=== PATIENT | male | born 1985 | race Caucasian/White ===

== ENCOUNTER 2017-06-13 16:55 | Emergency (ER) | payer SELFPAY ==
[~2017-06-13] VITALS: Ht 172.7 cm; Wt 81.6 kg
[~2017-06-13 16:55] MED LIST: MAXALT10 MG PO; PROMETHAZINE HC25 M1 PO; PROPRANOLOL HCL40 MG PO; PROPRANOLOL HCL60 M1 PO; SUMATRIPTAN SUC25 MG PO
[2017-06-13 18:47] LABS: BASOPHILS % 0.2 % (0.0-1.0); CLARITY,URINE CLEAR (CLEAR); COLOR,URINE YELLOW (YELLOW); EOSINOPHILS % 0.5 % (0.0-6.0); HEMATOCRIT 47.3 % (38.2-49.6); HEMOGLOBIN 15.8 g/dL (14.0-18.0); LYMPHOCYTES # (AUTO) 2.7 (1.0-3.2); LYMPHOCYTES % 32.4 % (18.0-39.1); MEAN CORPUSCULAR HEMOGLOBIN 28.4 pg (28-32); MEAN CORPUSCULAR HGB CONC 33.4 g/dL (31-35); MEAN CORPUSCULAR VOLUME 84.9 fL (81-99); MONOCYTES # (AUTO) 1.1 (0.2-0.8); MONOCYTES % 12.8 % (4.4-11.3); NEUTROPHILS # (AUTO) 4.4 (2.1-6.9); NEUTROPHILS % 53.9 % (38.7-80.0); PLATELET COUNT 276 x10e3/uL (140-360); RED BLOOD COUNT 5.57 x10e6/uL (4.3-5.7); RED CELL DISTRIBUTION WIDTH 13.5 % (11.7-14.4)
[2017-06-13 18:48] LABS: BILIRUBIN,URINE NEGATIVE (NEGATIVE); KETONES,URINE NEGATIVE (NEGATIVE); LEUKOCYTE ESTERASE ,URINE NEGATIVE (NEGATIVE); NITRITE,URINE NEGATIVE (NEGATIVE); PROTEIN,URINE DIPSTICK NEGATIVE (NEGATIVE); URINE UROBILINOGEN 0.2 mg/dL (0.2 - 1)
[2017-06-13 18:55] LABS: AMPHETAMINES SCREEN,URINE NEGATIVE (NEGATIVE); BENZODIAZEPINES SCREEN,URINE NEGATIVE (NEGATIVE); CANNABINOIDS SCREEN,URINE NEGATIVE (NEGATIVE); PHENCYCLIDINE SCREEN,URINE NEGATIVE (NEGATIVE)
[2017-06-13 19:00] LABS: ALANINE AMINOTRANSFERASE 23 IU/L (0-55); ALBUMIN 3.9 g/dL (3.5-5.0); ALKALINE PHOSPHATASE 97 IU/L (40-150); ANION GAP 12.1 mmol/L (8-16); BLOOD UREA NITROGEN 8 mg/dL (7-26); BUN/CREATININE RATIO 9 (6-25); CALCIUM 9.5 mg/dL (8.4-10.2); CARBON DIOXIDE 25 mmol/L (22-29); CHLORIDE 106 mmol/L (98-107); CREATININE, SERUM 0.89 mg/dL (0.72-1.25); EST GLOMERULAR FILTRATION RATE > 60 ML/MIN (60-); GLUCOSE 88 mg/dL (74-118); POTASSIUM 4.1 mmol/L (3.5-5.1); SODIUM 139 mmol/L (136-145)
[2017-06-13 19:10] LABS: VALPROIC ACID < 2 ug/mL (50-100)
--- NOTE | 2017-06-13 19:55 | Diagnostic Imaging Report ---
History: Fall Comparison studies: CT brain from 05/10/2015 and 06/22/2014. Technique: Axial images were obtained from the skull base to the vertex. Coronal and sagittal reconstructions obtained from the axial data. Findings: Scalp/skull: No abnormalities. No fractures, blastic or lytic lesions. Extra-axial spaces: No masses. No fluid collections. Brain sulci: Appropriate for age. Ventricles: Normal in size and configuration. No hydrocephalus. Parenchyma: No abnormal densities. No masses, hemorrhage, acute or chronic cortical vascular insults. Sellar/suprasellar region: No abnormalities Craniocervical junction: Patent foramen magnum. No Chiari one malformation. IMPRESSION: No intracranial abnormalities. A preliminary report was given by Neuroradiology fellow Dr. Akins at 6:11 PM on 06/13/2017. I have reviewed the study and agree with the findings in the preliminary report. Signed by: Dr. Christal Cuevas M.D. on 06/13/2017 7:52 PM
--- NOTE | 2017-06-13 19:59 | Diagnostic Imaging Report ---
History: Fall Comparison studies: None Technique: Axial images were obtained through the cervical region.. Coronal and sagittal images reconstructed from the axial data.. Intravenous contrast: None Findings: Airway: Patent. Fractures: None. Soft tissues: No gross abnormalities. Atlantoaxial articulation: Intact. Alignment: Normal lordosis. No scoliosis. Cervicomedullary junction: No abnormalities. The foramen magnum is patent. Vertebrae: No infection or neoplasm. Degenerative changes: None. IMPRESSION: 1. No acute abnormalities. 2. Ligament, spinal cord and or vascular abnormalities cannot be excluded on the basis of this examination. A preliminary report was given by Neuroradiology fellow Dr. Akins at 6:14 PM on 06/13/2017. I have reviewed the study and agree with the findings in the preliminary report. Signed by: Dr. Christal Cuevas M.D. on 06/13/2017 7:55 PM
== END 2017-06-13 20:01 | disposition left against medical advice (07) ==
LOC: ER 16:55
DX: G40.409 Other generalized epilepsy and epileptic syndromes, not intractable, without status epilepticus (principal)
CPT/HCPCS: 36415; 70450; 72125; 80053; 80164; 80307; 81001; 82542; 85025; 87086; 99284

== ENCOUNTER 2018-12-27 17:12 | Emergency (ER) | payer SELFPAY ==
[~2018-12-27] VITALS: Ht 175.3 cm; Wt 80.9 kg
--- OUTSIDE RECORDS SUMMARY | 2018-12-27 17:15 | XMS REPORT | Clinical Summary ---
Author Author [facility] Organization [facility] Address Unknown Phone Unavailable Care Team Providers Care Line Clearance Foreman Name Role Phone Asked, No Pcp PCP Unavailable Allergies Comments Active Allergy Reactions Severity Noted Date Throat swelling Dicyclomine Swelling 11/28/2016 Ketorolac 11/28/2016 Medications End Date Status Medication Sig Dispensed Refills Start Date Active gabapentin (NEURONTIN) Take 300 mg 0 300 mg capsule by mouth 2 (two) times a day. Active famotidine (PEPCID) 20 MG Take 20 mg by 0 tablet mouth 2 (two) times a day. Active Problems Problem Noted Date Seizure 11/29/2016 Convulsions 11/28/2016 Social History Date Tobacco Use Types Packs/Day Years Used Smoker, Current Status Unknown Alcohol Use Drinks/Week oz/Week Comments No Sex Assigned at Date Recorded Not on file Industry Job Start Date Occupation Not on file Not on file Not on file Travel End Travel History Travel Start No recent travel history available. Last Filed Vital Signs Not on file Plan of Treatment Health Maintenance Due Date Last Done Comments INFLUENZA VACCINE 01/22/2019 Results Not on fileafter 12/26/2017 Advance Directives Patient has advance care planning documents on file. For more information, jose johnson contact: Julio Brown [address] [place] [address]
--- OUTSIDE RECORDS SUMMARY | 2018-12-27 17:16 | XMS REPORT | Continuity of Care Document ---
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 3 cm AV Area Cont Eq pk2.7 cm Mitral E Point Velocity 62 cm/s Mitral A Point Velocity 54 cm/s Mitral E to A Ratio 1.1 MV Deceleration Bowman 285 cm/s MV Deceleration Fvgi644 ms PV Peak Ruavijhb16.5 cm/s PV Peak Gradient3.5 mmHg RVOT Peak Ejgalzxg09.4 cm/s RVOT Peak Gradient1.9 mmHg LV E' Lateral Velocity9.2 cm/s Mitral E to LV E' Lateral Ratio 6.8 LV E' Septal Velocity 7 cm/s Mitral E to LV E' Septal Ratio8.8 FINDINGS Left Ventricle The left ventricle is normal in size. Upper-normal LV wall thickness. LV systolic function is low normal. LVEF is 50-54%. There are no regional wall motion abnormalities.There is normal LV relaxation with normal filling pressures. Right Ventricle The right ventricle is normal in size and systolic function. TAPSE=1.8 cm. Right Atrium The right atrium is normal in size. Left Atrium The left atrium is normal in size. IAS Mitral Valve Structurally normal mitral valve without significant stenosis or prolapse. There is no mitral regurgitation. Aortic Valve The aortic valve is trileaflet and structurally normal. There is no aortic stenosis. There is no aortic regurgitation. Tricuspid Valve Structurally normal tricuspid valve without significant stenosis. There is trace tricuspid regurgitation.Insufficient TR jet to estimate pulmonary artery systolic pressure. Pulmonic Valve Structurally normal pulmonic valve without significant stenosis. There is trace pulmonic regurgitation. Pericardium No pericardial effusion. Aorta Normal aortic root for body surface area. IVC The inferior vena cava is normal in size. CONCLUSIONS The left ventricle is normal in size. Upper-normal LV wall thickness. LV systolic function is low normal. LVEF is 50-54%. There are no regional wall motion abnormalities. There is normal LV relaxation with normal filling pressures. The right ventricle is normal in size and systolic function. Atria are normal size. No significant valvular abnormalities. Insufficient TR jet to estimate pulmonary artery systolic pressure. No pericardial effusion. When compared to prior study from 10/06/2015, the LVEF is improved, no regional wall motion abnormalities are identified Max Park MD (Electronically Signed) Final Date:11 February 2018 17:11 2D ECHO Body Surface Area 2 m LV Diastolic Diameter PLAX4.7 cm4.2 - 5.9 / 3.9 - 5.3 cm LV Systolic Diameter PLAX 3.2 cm2.1 - 4.0 cm LV Fractional Shortening PLAX 32.1 %25 - 46% IVS Diastolic Thickness 1.1 cm IVS Systolic Thickness1.5 cm LVPW Diastolic Thickness1.1 cm LVPW Systolic Thickness 1.4 cm LV Relative Wall Thickness0.46 LVOT Diameter 2.1 cm Aortic Root Diameter3.4 cm LV Diastolic Volume MOD BP93.7 cm67 - 155 / 56 - 104 cm LV Systolic Volume MOD BP 43.7 cm22 - 58 / 19 - 49 cm LV Ejection Fraction MOD BP 53.4 %>=55% LV Stroke Volume MOD BP 50 cm LV Cardiac Output MOD UN6462 cm/min LV Cardiac Index MOD BP 2662 cm/minm LA Volume 44.7 cm18 - 58 / 22 - 52 cm LA Volume Index 22.9 cm/m 16 - 28 cm/m DOPPLER AV Peak Mbjxpdfm210 cm/s AV Peak Gradient4.7 mmHg AV Mean Hvgcejoy33 cm/s AV Mean Gradient2.3 mmHg AV Velocity Time Integral 17.8 cm LVOT Peak Fwhqhwem83 cm/s LVOT Peak Gradient2.8 mmHg LVOT Mean Yucvkaty90.9 cm/s LVOT Mean Gradient1.6 mmHg LVOT Velocity Time Integral 14.7 cm LVOT Stroke Hnxgnr07.5 cm AV Area Cont Eq vti 3 cm AV Area Cont Eq pk2.7 cm Mitral E Point Velocity 62 cm/s Mitral A Point Velocity 54 cm/s Mitral E to A Ratio 1.1 MV Deceleration Bowman 285 cm/s MV Deceleration Kgws607 ms PV Peak Zcbhqvvt64.5 cm/s PV Peak Gradient3.5 mmHg RVOT Peak Fsuzepiy17.4 cm/s RVOT Peak Gradient1.9 mmHg LV E' Lateral Velocity9.2 cm/s Mitral E to LV E' Lateral Ratio 6.8 LV E' Septal Velocity 7 cm/s Mitral E to LV E' Septal Ratio8.8 02/11/2018 [facility] TSH TSH 0.41 0.57 - 3.74 12/31/2017 [facility] TSH Lab Interpretation Abnormal 12/31/2017 [facility] HEMOGLOBIN A1C Hemoglobin A1c 5.5 4.3 - 6.1 12/31/2017 [facility] HEMOGLOBIN A1C Est Average Gluc 111.2 12/31/2017 [facility] BASIC METABOLIC PANEL CO2 26 21 - 31 12/31/2017 [facility] BASIC METABOLIC PANEL Chloride 103 98 - 107 12/31/2017 [facility] BASIC METABOLIC PANEL Potassium 4.8 3.5 - 5.1 12/31/2017 [facility] BASIC METABOLIC PANEL Sodium 137 136 - 145 12/31/2017 [facility] BASIC METABOLIC PANEL Glucose 110 70 - 110 12/31/2017 [facility] BASIC METABOLIC PANEL Urea Nitrogen 11 7 - 25 12/31/2017 [facility] BASIC METABOLIC PANEL Creatinine 0.90 0.7 - 1.3 12/31/2017 [facility] BASIC METABOLIC PANEL Anion Gap 8 12/31/2017 [facility] BASIC METABOLIC PANEL Calcium 10.3 8.6 - 10.3 12/31/2017 [facility] BASIC METABOLIC PANEL GFR, Estimated >60 mL/min/1.73 m2 12/31/2017 [facility] BASIC METABOLIC PANEL GFR, Estim, Afr-Am >60 mL/min/1.73 m2 12/31/2017 [facility] LIPID PROFILE <td ID="[id number]">Cholesterol</td><td><span>184</span>
<span style="allIndent"><span style="cellHeader">Comment: </span>
<span ID="[id number]" style="pre">REFERENCE RANGE:
Desirable: <200 mg/dL
Borderline: 200-240 mg/dL
High Risk: >240 mg/dL

</span></span></td><td>mg/dL</td><td>BT MAIN-STATION 1</td><td ID=&amp ;quot;[id number]"/> 184 12/31/2017 REFERENCE RANGE:
Desirable: <200 mg/dL
Borderline: 200-240 mg/dL
High Risk: >240 mg/dL

[facility] LIPID PROFILE <td ID="[id number]">Triglyceride</td><td><span>70</span>
<span style="allIndent"><span style="cellHeader">Comment: </span>
<span ID="[id number]" style="pre">REFERENCE RANGE:
Normal: <150 mg/dL
Borderline High: 150-199 mg/dL
High: 200-499 mg/dL
Very High: >yw=752 mg/dL

</span></span></td><td><150 mg/dL</td><td>BT MAIN- STATION 1</td><td ID="[id number]"/> 70 <150 12/31/2017 REFERENCE RANGE:
Normal: <150 mg/dL
Borderline High: 150-199 mg/dL
High: 200-499 mg/dL
Very High: >hy=124 mg/dL

[facility] LIPID PROFILE <td ID="[id number]">HDL</td><td><span>51</span>
<span style="allIndent"><span style="cellHeader">Comment: </span>
<span ID="[id number]" style="pre">Increased CHD risk: <40 mg/dL
Decreased CHD risk: >60 mg/dL

</span></span>&am p;lt;/td><td>mg/dL</td><td>BT MAIN-STATION 1</td><td ID="[id number]"/> 51 12/31/2017 Increased CHD risk: <40 mg/dL
Decreased CHD risk: >60 mg/dL

[facility] LIPID PROFILE <td ID="[id number]">LDL</td><td><span>119</span>
<span style="allIndent"><span style="cellHeader">Comment: </span>
<span ID="[id number]" style="pre">REFERENCE RANGE:
Optimal: <100 mg/dL
Near Optimal: 100-129 mg/dL
Borderline High: 130-159 mg/dL
High: 160-189 mg/dL
Very High: >br=605 mg/dL

</span></span></td><td>mg/dL</td><td>BT MAIN-STATION 1</td><td ID="[id number]"/> 119 12/31/2017 REFERENCE RANGE:
Optimal: <100 mg/dL
Near Optimal: 100-129 mg/dL
Borderline High: 130-159 mg/dL
High: 160-189 mg/dL
Very High: >mw=551 mg/dL

[facility] LIVER PROFILE T Protein 7.2 6 - 8.3 12/31/2017 [facility] LIVER PROFILE Albumin 4.4 4.2 - 5.5 12/31/2017 [facility] LIVER PROFILE T Bilirubin 0.4 0.2 - 1.2 12/31/2017 [facility] LIVER PROFILE Alk Phos 69 34 - 104 12/31/2017 [facility] LIVER PROFILE AST 17 13 - 39 12/31/2017 [facility] LIVER PROFILE ALT 22 7 - 52 12/31/2017 [facility] LIVER PROFILE D Bilirubin 0.1 0 - 0.2 12/31/2017 [facility] CBC/DIFF WBC 12.1 4.5 - 12 12/31/2017 [facility] CBC/DIFF RBC 5.85 4.60 - 6.20 12/31/2017 [facility] CBC/DIFF Hemoglobin 17.5 14 - 18 12/31/2017 [facility] CBC/DIFF Hematocrit 52.5 40 - 54 12/31/2017 [facility] CBC/DIFF MCV 90 82 - 92 12/31/2017 [facility] CBC/DIFF MCH 29.9 27 - 31 12/31/2017 [facility] CBC/DIFF MCHC 33.3 32 - 36 12/31/2017 [facility] CBC/DIFF RDW 44.4 35.1 - 43.9 12/31/2017 [facility] CBC/DIFF Platelet 386 150 - 400 12/31/2017 [facility] CBC/DIFF Mean Platelet Volume 10.0 9.4 - 12.4 12/31/2017 [facility] CBC/DIFF Percent NRBC 0.0 12/31/2017 [facility] CBC/DIFF Absolute NRBC 0.00 12/31/2017 [facility] CBC/DIFF Neutrophil 75.5 34 - 67.9 12/31/2017 [facility] CBC/DIFF Lymphocyte 16.1 21.8 - 50 12/31/2017 [facility] CBC/DIFF Monocyte 6.3 5.3 - 12 12/31/2017 [facility] CBC/DIFF Eosinophil 1.2 0.8 - 5 12/31/2017 [facility] CBC/DIFF Basophil 0.5 0.2 - 1.2 12/31/2017 [facility] CBC/DIFF Pct Immat Gran 0.4 0.0 - 0.5 12/31/2017 [facility] CBC/DIFF Neutrophil, Abs 9.14 1.78 - 5.36 12/31/2017 [facility] CBC/DIFF Lymphocyte, Abs 1.95 1.32 - 3.57 12/31/2017 [facility] CBC/DIFF Monocyte, Abs 0.76 0.3 - 0.82 12/31/2017 [facility] CBC/DIFF Eosinophil, Abs 0.15 0.04 - 0.54 12/31/2017 [facility] CBC/DIFF Basophil, Abs 0.06 0.01 - 0.08 12/31/2017 [facility] CBC/DIFF Absol Immat Gran 0.05 0 - 0.03 12/31/2017 [facility] CBC/DIFF Lab Interpretation Abnormal 12/31/2017 [facility] 12 LEAD EKG 12 LEAD EKG FOR [facility] Test Date:2017-12-23 Pat Name: GRABIEL HWANG Department: : 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 Measurements IntervalsAxis Rate: 92 P:65 RI: 128QRS:78 QRSD: 74 T:49 QT: 334 QTc:413 Interpretive Statements Normal sinus rhythm Normal ECG Electronically Signed On 12-23-17 17:05:02 CDT by Isabel Altamirano M.D. 12/23/2017 [facility] Pathology Reports No Data Provided for This Section Diagnostic Reports Report Value Date Source XRAY CHEST 2 VIEWS IMPRESSION: 1.Age-indeterminate wedge- shaped compression deformities of the T7 andT8 vertebral bodies, new since 07/27/2015.2.Lungs are clear. Dictated By: Daren Duenas DO, 08/11/2018 1:23 PM I have reviewed the study and agree with the findings in this report. Signed By: Yesenia Álvarez MD, 08/11/2018 1:56 PM EXAM: XRAY CHEST 2 VIEWS DATE: 08/11/2018 10:06 AM INDICATION: Sob on exertion, h/o CHF COMPARISON: Chest x-ray 07/27/2015 FINDINGS: Devices, Lines, and Tubes: None. Heart and Mediastinum: No abnormalities. Lungs and Pleura: Clear. Bones and Soft Tissues: Age- indeterminate wedge-shaped compressiondeformities of the T7 and T8 vertebral bodies with with 40% height loss,and increased thoracic kyphosis. Cortical anchor screws in the righthumeral head. Interface, Rad/Mammog In - 08/11/2018 2:01 PM CSTEXAM: XRAY CHEST 2 VIEWS DATE: 08/11/2018 10:06 AM INDICATION: Sob on exertion, h/o CHF COMPARISON: Chest x-ray 07/27/2015 FINDINGS: Devices, Lines, and Tubes: None. Heart and Mediastinum: No abnormalities. Lungs and Pleura: Clear. Bones and Soft Tissues: Age-indeterminate wedge-shaped compression deformities of the T7 and T8 vertebral bodies with with 40% height loss, and increased thoracic kyphosis. Cortical anchor screws in the right humeral head. IMPRESSION IMPRESSION: 1. Age-indeterminate wedge-shaped compression deformities of the T7 and T8 vertebral bodies, new since 07/27/2015. 2. Lungs are clear. Dictated By: Daren Duenas DO, 08/11/2018 1:23 PM I have reviewed the study and agree with the findings in this report. Signed By: Yesenia Álvarez MD, 08/11/2018 1:56 PM 08/11/2018 [facility] Consultation Notes No Data Provided for This Section Discharge Summaries No Data Provided for This Section History and Physicals No Data Provided for This Section Vital Signs Vital Sign Value Date Comments Source Systolic (mm Hg) 117 10/16/2018 [facility] Diastolic (mm Hg) 76 10/16/2018 [facility] Heart Rate 109 10/16/2018 [facility] Temperature Oral (F) 36.83 [place] 10/16/2018 [facility] Respitory Rate 18 10/16/2018 [facility] Height 175.3 cm 10/16/2018 [facility] Weight 81.92 10/16/2018 [facility] Systolic (mm Hg) 108 04/01/2018 [facility] Diastolic (mm Hg) 71 04/01/2018 [facility] Heart Rate 85 04/01/2018 [facility] Temperature Oral (F) 36.61 [place] 04/01/2018 [facility] Respitory Rate 18 04/01/2018 [facility] Height 175.3 cm 04/01/2018 [facility] Weight 82.01 04/01/2018 [facility] BMI Calculated 26.70 04/01/2018 [facility] Systolic (mm Hg) 124 12/23/2017 [facility] Diastolic (mm Hg) 81 12/23/2017 [facility] Heart Rate 121 12/23/2017 [facility] Temperature Oral (F) 36.89 [place] 12/23/2017 [facility] Respitory Rate 18 12/23/2017 [facility] Height 175.3 cm 12/23/2017 [facility] Weight 77.928 12/23/2017 [facility] BMI Calculated 25.37 12/23/2017 [facility] Encounters Location Location Details Encounter Type Encounter Number Reason For Visit Attending Provider ADM Date DC Date Status Source [facility] [place] Refill [id number] RLQ abdominal pain Right upper quadrant abdominal pain Ting Rascon MD 09/03/2017 [facility] [place] Refill [id number] Heart palpitations Chronic intractable headache, unspecified headache type Combined systolic and diastolic congestive heart failure, unspecified congestive heart failure chronicity Sinus tachycardia Right upper quadrant abdominal pain RLQ abdominal pain Ting Rascon MD 09/03/2017 [facility] [place] [facility] Visit [id number] 09/03/2017 [facility] [place] [facility] Visit [id number] 09/04/2017 [facility] [place] [facility] Visit [id number] 09/05/2017 [facility] [place] Office Visit [id number] [facility] Acute non-recurrent maxillary sinusitis Cough Combined systolic and diastolic congestive heart failure, unspecified congestive heart failure chronicity Sinus tachycardia Seizures Gastroesophageal reflux disease without esophagitis Pain in thoracic spine at multiple sites Ting Rascon MD 09/05/2017 09/05/2017 [facility] [place] [facility] Visit [id number] 09/06/2017 [facility] [place] Orders Only [id number] Seizure Georgina Freed [employer] 09/11/2017 [facility] [place] [facility] Visit [id number] 09/12/2017 [facility] Visit [id number] 09/12/2017 [facility] [place] [facility] Visit [id number] 09/26/2017 [facility] [place] Refill [id number] Acute non-recurrent maxillary sinusitis Cough Scott Hernadez MD 09/26/2017 [facility] Visit [id number] 09/26/2017 [facility] [place] [facility] Visit [id number] 09/27/2017 [facility] Visit [id number] 09/27/2017 [facility] [place] [facility] Visit [id number] 09/30/2017 [facility] Visit [id number] 09/30/2017 [facility] [place] [facility] Visit [id number] 10/01/2017 [facility] Visit [id number] 10/01/2017 [facility] [place] [facility] Visit [id number] 10/02/2017 [facility] [place] [facility] Visit [id number] 10/03/2017 [facility] [place] Refill [id number] Pain in thoracic spine at multiple sites Scott Hernadez MD 10/26/2017 [facility]acy Visit [id number] 10/28/2017 [facility] [place] Refill [id number] Pain in thoracic spine at multiple sites Scott Hernadez MD 10/29/2017 [facility] [place] [facility] Visit [id number] 11/04/2017 [facility] [place] [facility] Visit [id number] 11/07/2017 [facility] [place] [facility] Visit [id number] 12/03/2017 [facility] [place] [facility] Visit [id number] 12/04/2017 [facility] Visit [id number] 12/04/2017 [facility] [place] [facility] Visit [id number] 12/05/2017 [facility] [place] [facility] Visit [id number] 12/23/2017 [facility] [place] Office Visit [id number] Ting Rascon MD 12/23/2017 12/23/2017 [facility] [place] Lab Appointment [id number] Ting Rascon MD 12/30/2017 12/30/2017 [facility] [place] [facility] Visit [id number] 01/02/2018 [facility] [place] Refill [id number] Scott Hernadez MD 02/01/2018 [facility] [place] [facility] Visit [id number] 02/03/2018 [facility] Visit [id number] 02/03/2018 [facility] [place] [facility] Visit [id number] 02/04/2018 [facility] Encounter [id number] Ting Rascon MD 02/11/2018 02/12/2018 [facility] [place] Refill [id number] Rosa Jha RN 02/12/2018 [facility] [place] [facility] Visit [id number] 02/17/2018 [facility] [place] [facility] Visit [id number] 02/19/2018 [facility] [place] [facility] Visit [id number] 03/04/2018 [facility] Visit [id number] 03/25/2018 [facility] [place] [facility] Visit [id number] 03/25/2018 [facility] [place] [facility] Visit [id number] 03/27/2018 [facility] [place] [facility] Visit [id number] 04/01/2018 [facility] [place] Office Visit [id number] Ting Rascon MD 04/01/2018 04/01/2018 [facility] [place] [facility] Visit [id number] 04/02/2018 [facility] [place] [facility] Visit [id number] 05/02/2018 [facility] [place] Refill [id number] Rosa Jha RN 05/26/2018 [facility] [place] Refill [id number] Ting Rascon MD 06/21/2018 [facility] Travel [id number] 08/04/2018 [facility] Office Visit [id number] Ting Rascon MD 08/04/2018 08/04/2018 [facility] [place] Orders Only [id number] Ting Rascon MD 08/07/2018 [facility] [place] Office Visit [id number] Ting Rascon MD 08/07/2018 08/07/2018 [facility] [place] Lab Appointment [id number] Ting Rascon MD 08/11/2018 08/11/2018 [facility] [place] Ancillary Procedure [id number] Ting Rascon MD 08/11/2018 08/11/2018 [facility] [place] Refill [id number] Ting Rascon MD 09/14/2018 [facility] [place] Refill [id number] Scott Hernadez MD 09/14/2018 [facility] [place] Refill [id number] Ting Rascon MD 09/30/2018 [facility] [place] Telephone [id number] Bradford Tan 10/02/2018 [facility] Travel [id number] 10/14/2018 [facility] [place] Orders Only [id number] Ting Rascon MD 10/16/2018 [facility] [place] Office Visit [id number] Ting Rascon MD 10/16/2018 10/16/2018 [facility] [place] Refill [id number] Ting Rascon MD 11/12/2018 [facility] EKG (5400) [facility] Encounter [id number] Ting Rascon MD 11/14/2018 [facility] Procedures Procedure Code Date Perfomer Comments Source XRAY CHEST 2 VIEWS 34828 08/11/2018 [facility] VALPROIC ACID 04615 08/11/2018 [facility] LIVER PROFILE 62914 08/11/2018 [facility] BASIC METABOLIC PANEL 40890 08/11/2018 [facility] CBC/DIFF 10647 08/11/2018 [facility] HEMOGLOBIN A1C 27525 08/11/2018 [facility] FREE T4 62778 08/11/2018 [facility] THYROID STIMULATING HORMONE (TSH) 60434 08/11/2018 [facility] PULMONARY FUNCTION TEST 36670 08/08/2018 [facility] TRANSTHORACIC ECHO (TTE) 76005 02/11/2018 [facility] TRANSTHORACIC ECHO (TTE) 75146 02/11/2018 [facility] LIPID PROFILE 20679 12/30/2017 [facility] LIVER PROFILE 05940 12/30/2017 [facility] BASIC METABOLIC PANEL 44843 12/30/2017 [facility] CBC/DIFF 71819 12/30/2017 [facility] HEMOGLOBIN A1C 09184 12/30/2017 [facility] THYROID STIMULATING HORMONE (TSH) 47965 12/30/2017 [facility] LIPID PROFILE 19497 12/30/2017 [facility] LIVER PROFILE 04302 12/30/2017 [facility] BASIC METABOLIC PANEL 48555 12/30/2017 [facility] CBC/DIFF 61634 12/30/2017 [facility] HEMOGLOBIN A1C 54602 12/30/2017 [facility] TSH 81038 12/30/2017 [facility] 12 LEAD EKG 71573 12/23/2017 [facility] 12 LEAD EKG 00777 12/23/2017 [facility] Assessment and Plan No Data Provided for This Section Plan of Care Plan of Care Date Source Not on file 12/02/2018 [facility] Upcoming EncountersDateTypeSpecialtyCare TeamDescription 07/03/2018 Office Visit Neurology ref #: [id number] 05/19/2018 [facility] Upcoming EncountersDateTypeSpecialtyCare TeamDescription 04/01/2018 Office Visit Family Practice Ting Rascon [id number] [phone] (Fax) [facility] Social History Social History Date Source Tobacco UseTypesPacks/DayYears UsedDate Light Tobacco Smoker Cigarettes 0.5 10 Smokeless Tobacco: Never Used Tobacco Cessation: Ready to Quit: Yes; Counseling Given: Yes Comments: trying to quit Alcohol UseDrinks/Weekoz/WeekComments No 0 Standard drinks or equivalent 0.0 none ETOH for four years (07/2015) Food InsecurityAnswerDate Recorded Within the past 12 months, you worried that your food would run out before you got money to buy more. Sometimes true 10/16/2018 Within the past 12 months, the food you bought just didn't last and you didn't have money to get more. 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 11/26/2018 [facility] Family History Value Date Source Medical HistoryRelationNameComments Hypertension Mother Other Mother migraine, depression RelationNameStatusComments Brother Alive Father Alive Maternal Grandfather Maternal Grandmother Mother Alive Paternal Grandfather Paternal Grandmother Alive Sister Alive Sister Alive Sister Alive Son Alive 12/02/2018 [facility] Medical HistoryRelationNameComments Hypertension Mother Other Mother migraine, depression RelationNameStatusComments Brother Alive Father Alive Maternal Grandfather Maternal Grandmother Mother Alive Paternal Grandfather Paternal Grandmother Alive Sister Alive Sister Alive Sister Alive Son Alive 05/19/2018 [facility] Medical HistoryRelationNameComments Hypertension Mother Other Mother migraine, depression RelationNameStatusComments Brother Alive Father Alive Maternal Grandfather Maternal Grandmother Mother Alive Paternal Grandfather Paternal Grandmother Alive Sister Alive Sister Alive Sister Alive Son Alive 03/27/2018 [facility] Advance Directives No Data Provided for This Section Functional Status No Data Provided for This Section
--- OUTSIDE RECORDS SUMMARY | 2018-12-27 17:17 | XMS REPORT | Clinical Summary ---
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 Velocity 7 cm/s Mitral E to LV E' Septal Ratio8.8 Specimen Performing Organization Address [facility] Phone Number [facility] * LIPID PROFILE (12/30/2017 12:58 PM CDT) Cholesterol 184 mg/dL BT MAIN-STATION Comment: 1 REFERENCE RANGE: Desirable: <200 mg/dL Borderline: 200-240 mg/dL High Risk: >240 mg/dL Triglyceride 70 <150 mg/dL BT MAIN-STATION Comment: 1 REFERENCE RANGE: Normal: <150 mg/dL Borderline High: 150-199 mg/dL High: 200-499 mg/dL Very High: >or=671 mg/dL HDL 51 mg/dL BT MAIN-STATION Comment: 1 Increased CHD risk: <40 mg/dL Decreased CHD risk: >60 mg/dL LDL 119 mg/dL BT MAIN-STATION Comment: 1 REFERENCE RANGE: Optimal: <100 mg/dL Near Optimal: 100-129 mg/dL Borderline High: 130-159 mg/dL High: 160-189 mg/dL Very High: >iz=471 mg/dL Specimen Blood Performing Organization Address [facility] Phone Number MISYS BT MAIN-STATION 1 * 12 LEAD EKG (12/23/2017 10:56 AM CDT) 12 LEAD EKG FOR [facility] Test Date:2017-12-23 Pat Name: SAMSON HWANG Department: Room: Gender: M [employer] Director: [id number] :1984-06 Requested By: Order Number: Joshua larios MD: Isabel Altamirano M.D. Measurements Intervals [place] Rate: 92 P:65 CT: 128 QRS: 78 QRSD: 74 T:49 QT: 334 QTc:413 Interpretive Statements Normal sinus rhythm Normal ECG Electronically Signed On 12-23-17 17:05:02 CDT by Isabel Altamirano M.D. Specimen Performing Organization Address City/State/Zipcode Phone Number SMS after 12/01/2017 Insurance Type Payer Benefit Subscriber ID Effective Phone Address Plan / Dates Group [facility] xxxxxxx 2018-4 [address] SELF FAMILY /01/2020 [id number] [place], [place] SELF [phone] [facility] SELF-PAY SELF-PAY xxxxxxx 2018-3 [address] [facility] / [place] [address]
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
--- OUTSIDE RECORDS SUMMARY | 2018-12-27 17:19 | XMS REPORT | Clinical Summary ---
Author Author [facility] Organization [facility] Address Unknown Phone Unavailable Care Team Providers Care Outbound Supervisor Name Role Phone Ting Portillo MD PCP [...] Active tablet times daily as needed. 17 divalproex (DEPAKOTE) 250 Take 1 tablet by mouth 2 60 tablet 3 09/12/19 Active mg delayed release times daily. 18 tabletIndications: Seizure lisinopril (PRINIVIL) 10 Take 1 tablet by mouth 90 tablet 1 12/24/19 Active mg tabletIndications: daily. 18 Sinus tachycardia carvedilol (COREG) 25 mg Take 1 tablet by mouth 2 180 tablet 1 12/24/19 Active tabletIndications: times daily (with meals). 18 Combined systolic and diastolic congestive heart failure, unspecified HF chronicity furosemide (LASIX) 20 mg Take 1 tablet by mouth 90 tablet 1 12/24/19 Active tabletIndications: daily. 18 Combined systolic and diastolic congestive heart failure, unspecified HF chronicity zolpidem (AMBIEN) 5 mg Take 1 tablet by mouth 30 tablet 1 12/24/19 Active TabIndications: Insomnia, nightly at bedtime as 18 unspecified type needed for Insomnia. gabapentin (NEURONTIN) Take 1 capsule by mouth 2 60 capsule 3 02/05/20 Active 300 mg times daily. 18 capsuleIndications: Seizures traMADol (ULTRAM) 50 mg Take 1 tablet by mouth 60 tablet 1 02/18/20 Active tabletIndications: Pain every 12 hours. 18 in thoracic spine at multiple sites sennosides (SENOKOT) 8.6 Take 1 tablet by [...] unspecified congestive heart failure chronicity, Sinus tachycardia traMADol (ULTRAM) 50 mg Take 1 tablet [...] Encounters Date Type Specialty Care Team Description 03/27/2018 Pharmacy Visit 03/25/2018 Pharmacy Visit 03/25/2018 Pharmacy Visit 03/04/2018 Pharmacy Visit 02/19/2018 Pharmacy Visit 02/17/2018 Pharmacy Visit 02/12/2018 Refill Family Practice Rosa Jha RN Pain in thoracic spine at multiple sites 02/11/2018 Hospital Ting Portillo MD Encounter 02/04/2018 Pharmacy Visit 02/03/2018 Pharmacy Visit 02/03/2018 Pharmacy Visit 02/01/2018 Refill Family Practice Scott Hernadez MD Seizures 01/02/2018 Pharmacy Visit 12/30/2017 Lab Appointment Lab Ting Portillo MD Preventative health care 12/23/2017 Office Visit Family Practice Ting Portillo MD [...] Pharmacy Visit 11/04/2017 Pharmacy Visit 10/29/2017 Refill [facility] Scott Hernadez MD Pain in thoracic spine at multiple sites 10/28/2017 Pharmacy Visit 10/26/2017 Refill Family Scott Pringle MD Pain in thoracic spine at multiple sites 10/03/2017 Pharmacy Visit 10/02/2017 Pharmacy Visit 10/01/2017 Pharmacy Visit 10/01/2017 Pharmacy Visit 09/30/2017 Pharmacy Visit 09/30/2017 Pharmacy Visit 09/27/2017 Pharmacy Visit 09/27/2017 Pharmacy Visit 09/26/2017 Pharmacy Visit 09/26/2017 Refill [facility] Scott Pringle MD Acute non-recurrent maxillary sinusitis; Cough 09/26/2017 Pharmacy Visit 09/12/2017 Pharmacy Visit 09/12/2017 Pharmacy Visit 09/11/2017 Orders Only Family Practice Georgina Freed NP Seizure (Primary Dx) 09/06/2017 Pharmacy Visit 09/05/2017 Office Visit Family Ting Noguera MD Preventative health care Georgina Freed NP (Primary Dx); Acute non-recurrent maxillary sinusitis; Cough; Combined systolic and diastolic congestive heart failure, unspecified congestive heart failure chronicity; Sinus tachycardia; Seizures; Gastroesophageal reflux disease without esophagitis; Pain in thoracic spine at multiple sites 09/05/2017 Pharmacy Visit 09/04/2017 Pharmacy Visit 09/03/2017 Refill Family Practice Ting Portillo MD RLQ abdominal pain; Right upper quadrant abdominal pain 09/03/2017 Refill Family Ting Noguera MD Heart palpitations; Chronic intractable headache, unspecified headache type; Combined systolic and diastolic congestive heart failure, unspecified congestive heart failure chronicity; Sinus tachycardia; Right upper quadrant abdominal pain; RLQ abdominal pain 09/03/2017 Pharmacy Visit after 03/26/2017 Immunizations Name Dates Previously Given Next Due Azithromycin 250mg Tab In 08/26/2015 Clinic Influenza Vaccine 04/18/2016 (Deferred: Patient Refused), 08/27/2015 (Deferred: Patient Refused), 08/26/2015 (Deferred: Patient Refused), 05/06/2015 (Deferred: Patient Refused), 08/12/2014 (Deferred: Patient Refused) Tdap Tetanus, diphtheria, 08/26/2012 acellular pertussis Vaccine [...] Vital Sign Reading Time Taken Blood Pressure 124/81 12/23/2017 9:19 AM CDT Pulse 121 12/23/2017 9:19 AM CDT Temperature 36.9 C (98.4 F) 12/23/2017 9:19 AM CDT Respiratory Rate 18 12/23/2017 9:19 AM CDT Oxygen Saturation 96% 12/23/2017 9:19 AM CDT Inhaled Oxygen - - Concentration Weight 77.9 kg (171 lb 12.8 oz) 12/23/2017 9:19 AM CDT Height 175.3 cm (5' 9") 12/23/2017 9:19 AM CDT Body Mass Index 25.37 12/23/2017 9:19 AM CDT Plan of Treatment Date Type Specialty Care Team Description 04/01/2018 Office Visit Family Practice Ting Portillo MD [address] [address] Procedures Procedure Name Priority Date/Time Associated Diagnosis [...] procedure are in the results section. after 03/26/2017 Results * TRANSTHORACIC ECHO (TTE) (02/11/2018 1:34 PM) TRANSTHORACIC ECHO (TTE) Transthoracic SMS Echo Report SAMSON HWANG Age:32 Gender: M :1985 Exam Date: 02/11/2018 13:34 Exam Location: [facility] Echo Ordering Phys: TING PORTILLO Referring Phys:TING PORTILLO Reading Phys:Max Park MD Fellow Phys: Wilfrido Ahumada M.D. Fellow Phys: Patient Service Technician Pst: Nelli Wilson Reason For Exam: Indications: worsening symptoms of SOB, NYHA III, tachycardia ICD-9 Codes: Exam Type: TRANSTHORACIC ECHO (TTE) Procedure CPT:24245 Addtional CPT: Ht (in): 69 BSA: 1.95HR: [...] BP 50 cm LV Cardiac Output MOD [id number] cm/min LV Cardiac Index MOD BP 2662 [...] E to A Ratio 1.1 MV Deceleration [place] 285 cm/s MV Deceleration Time 217 ms [...] BP 50 cm LV Cardiac Output MOD [id number] cm/min LV Cardiac Index MOD BP 2662 [...] E to A Ratio 1.1 MV Deceleration [place] 285 cm/s MV Deceleration Time 217 ms PV Peak Velocity 93.5 cm/s PV Peak Gradient 3.5 mmHg RVOT Peak Velocity 69.4 cm/s RVOT Peak Gradient 1.9 mmHg LV E' Lateral Velocity 9.2 cm/s Mitral E to LV E' Lateral Ratio 6.8 LV E' Septal Velocity 7 cm/s Mitral E to LV E' Septal Ratio8.8 Performing Organization Address [facility] [place] Phone Number SMS * HEMOGLOBIN A1C (12/30/2017 12:58 PM) Hemoglobin A1c 5.5 4.3 - 6.1 % BT DIAGNOSTIC IMMUNOLOGY Est Average Gluc 111.2 mg/dL BT DIAGNOSTIC IMMUNOLOGY Specimen Blood Performing Organization Address [facility] [place] Phone Number MISYS BT DIAGNOSTIC IMMUNOLOGY * TSH (12/30/2017 12:58 PM) TSH 0.41 (L) 0.57 - 3.74 uIU/mL BT MAIN-STATION 1 Specimen Blood Performing Organization Address [facility] [place] Phone Number MISYS BT MAIN-STATION 1 * [...] MAIN-STATION 1 Specimen Blood Performing Organization Address [facility] [place] Phone Number MISYS BT MAIN-STATION 1 * LIPID PROFILE (12/30/2017 12:58 PM) Cholesterol 184 mg/dL BT MAIN-STATION 1 Comment: REFERENCE RANGE: Desirable: <200 mg/dL Borderline: 200-240 mg/dL High Risk: >240 mg/dL Triglyceride 70 <150 mg/dL BT MAIN-STATION 1 Comment: REFERENCE RANGE: Normal: <150 mg/dL Borderline High: 150-199 mg/dL High: 200-499 mg/dL Very High: >ll=228 mg/dL HDL 51 mg/dL BT MAIN-STATION 1 Comment: Increased CHD risk: <40 mg/dL Decreased CHD risk: >60 mg/dL LDL 119 mg/dL BT MAIN-STATION 1 Comment: REFERENCE RANGE: Optimal: <100 mg/dL Near Optimal: 100-129 mg/dL Borderline High: 130-159 mg/dL High: 160-189 mg/dL Very High: >kr=885 mg/dL Specimen Blood Performing Organization Address City/State/Zipcode Phone Number MISYS BT MAIN-STATION 1 * CBC/DIFF (12/30/2017 12:58 PM) WBC [...] MAIN-STATION 2 Specimen Blood Performing Organization Address [facility] [place] Phone Number MISYS BT MAIN-STATION 2 * [...] MAIN-STATION 1 Specimen Blood Performing Organization Address [facility] [place] Phone Number MISYS BT MAIN-STATION 1 * 12 LEAD EKG (12/23/2017 10:56 AM) 12 LEAD EKG FOR [facility] Test Date:2017-12-23 Pat Name: SAMSON HWANG Department: Room: Gender: M Vegetable 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 Measurements Intervals [place] Rate: 92 P:65 GA: 128 QRS: 78 QRSD: 74 T:49 QT: 334 QTc:413 Interpretive Statements Normal sinus rhythm Normal ECG Electronically Signed On 12-23-17 17:05:02 CDT by Isabel Altamirano M.D. Performing Organization Address City/State/Zipcode Phone Number SMS after 03/26/2017
--- OUTSIDE RECORDS SUMMARY | 2018-12-27 17:20 | XMS REPORT ---
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 Allergies, Adverse Reactions, Alerts Allergy Name Allergy Type Status Severity Reaction(s) Onset Date Inactive Date Treating Clinician Comments Penicillins DA Active U 2018-09-07 00:00:00 caffeine DA Active [place] 2018-09-07 00:00:00 dicyclomine DA Active [place] 2018-09-07 00:00:00 ketorolac DA Active [place] 2018-09-07 00:00:00 perflutren DA Active [place] 2018-09-07 00:00:00 Penicillins DA Active U 2018-06-12 00:00:00 caffeine DA Active [place] 2018-06-12 00:00:00 dicyclomine DA Active KS 2018-06-12 00:00:00 ketorolac DA Active KS 2018-06-12 00:00:00 perflutren DA Active KS 2018-06-12 00:00:00 Penicillins DA Active U 2018-05-07 00:00:00 caffeine DA Active [place] 2018-05-07 00:00:00 dicyclomine DA Active [place] 2018-05-07 00:00:00 ketorolac DA Active [place] 2018-05-07 00:00:00 perflutren DA Active [place] 2018-05-07 00:00:00 Penicillins DA Active U 2017-10-19 00:00:00 caffeine DA Active [place] 2017-10-19 00:00:00 dicyclomine DA Active [place] 2017-10-19 00:00:00 ketorolac DA Active [place] 2017-10-19 00:00:00 perflutren DA Active MO 2017-10-19 00:00:00 Medications This patient has no known medications. Encounters Start Date/Time End Date/Time Encounter Type Admission Type Attending [facility] Care Department Encounter ID 2019-01-29 00:00:00 2019-01-29 00:00:00 Outpatient [facility] [id number] 2018-12-02 16:38:00 2018-12-02 16:38:00 Emergency E [facility] [id number] 2018-11-14 00:00:00 2018-11-14 00:00:00 Outpatient [facility] [id number] 2018-10-31 00:00:00 2018-10-31 00:00:00 Outpatient [facility] [id number] 2018-10-29 00:00:00 2018-10-29 00:00:00 Outpatient [facility] [id number] 2018-10-16 14:39:21 2018-10-16 14:39:21 Outpatient [facility] [id number] 2018-10-10 00:00:00 2018-10-10 00:00:00 Outpatient [facility] [id number] 2018-10-09 00:00:00 2018-10-09 00:00:00 Outpatient [facility] [id number] 2018-09-08 00:00:00 2018-09-08 00:00:00 Outpatient [facility] [id number] 2018-09-03 00:00:00 2018-09-03 00:00:00 Outpatient [facility] [id number] 2018-08-27 00:00:00 2018-08-27 00:00:00 Outpatient [facility] [id number] 2018-08-25 00:00:00 2018-08-25 00:00:00 Outpatient [facility] [id number] 2018-08-19 00:00:00 2018-08-19 00:00:00 Outpatient [facility] [id number] 2018-08-11 09:58:34 2018-08-11 09:58:34 Outpatient [facility] [id number] 2018-08-11 09:48:29 2018-08-11 09:48:29 Outpatient [facility] [id number] 2018-08-07 15:51:56 2018-08-07 15:51:56 Outpatient [facility] [id number] 2018-08-04 12:13:05 2018-08-04 12:13:05 Outpatient [facility] [id number] 2018-08-04 00:00:00 2018-08-04 00:00:00 Outpatient [facility] [id number] 2018-07-03 00:00:00 2018-07-03 00:00:00 Outpatient [facility] [id number] 2018-05-26 00:00:00 2018-05-26 00:00:00 Outpatient [facility] [id number] 2018-04-01 15:21:32 2018-04-01 15:21:32 Outpatient [facility] [id number] 2018-04-01 00:00:00 2018-04-01 00:00:00 Outpatient [facility] [id number] 2018-03-19 00:00:00 2018-03-19 00:00:00 Outpatient [facility] [id number] 2018-02-12 00:00:00 2018-02-12 00:00:00 Outpatient [facility] [id number] 2018-02-11 14:07:27 2018-02-11 14:07:27 Outpatient [facility] [id number] 2018-02-01 00:00:00 2018-02-01 00:00:00 Outpatient [facility] [id number] 2017-12-30 13:02:29 2017-12-30 13:02:29 Outpatient [facility] [id number] 2017-12-23 09:19:21 2017-12-23 09:19:21 Outpatient [facility] [id number] Results Test Description Test Time Test Comments Text Results Atomic Results Result Comments - XR HAND 3 + V LT 2018-12-07 17:40:00 Name: GRABIEL HWANG [facility] : 1985 Age/S:33 /M [address] [facility] Unit#:[id number] Loc: [place] [address] Phys: Yeimi Spencer DELIVERY CONSULTANT Dis Date: PHONE #: [phone] Status: DEP ER FAX #: [phone] Exam Date: 12/07/2018 Reason: s/p staple removal EXAMS: CPT CODE: [id number] XR HAND 3 + V LT 04772 EXAM: Right hand, 3 views; INFORMATION: Status post trauma; status post removal of a metallic staple; IMPRESSION: 1. No evidence of residual foreign body after removal of a stable. 2. The oblique view it now demonstrates a 7 x 1 mm cortical bone fragment along the radial aspect of the proximal portion of the third metacarpal bone. This is consistent with localized osseous trauma secondary to the staple injury. at 1740 Reported and signed by: Mckinley Costello M.D. CC: Bret Monte MD Technologist: Bettina Clemons Trnscrpt Data: 12/07/2018 (484) Gus Orig Print D/T: S: 12/08/2018 (7254) PAGE 1 Signed Report - XR HAND 3 + V LT 2018-12-07 17:05:00 Name: GRABIEL HWANG [facility] : 1985 Age/S:33 /M [address] [facility] Unit#:[id number] Loc: [place] [address] Phys: Yeimi Spencer NP Dis Date: PHONE #: [phone] Status: REG FAX #: [phone] Exam Date: 12/07/2018 Reason: staple in palm of left hand EXAMS: CPT CODE: [id number] XR HAND 3 + V LT [address] EXAM: Left hand, 3 views INFORMATION: Trauma; stable in palm of left hand; IMPRESSION: A new shape metallic foreign body is seen within soft tissues of the left hand. It measures about 2 cm in length. Osseous structures are intact; no evidence of fracture or dislocation. at 7174 Reported and signed by: Mckinley Costello M.D. CC: Technologist: Bettina Clemons Trnscrpt Data: 12/07/2018 (3688) Gus Orig Print D/T: S: 12/07/2018 (5083) PAGE 1 Signed Report - XR HAND 3 + V RT 2018-12-01 13:05:00 Name: GRABIEL HWANG [facility] : 1985 Age/S:33 /M [address] [facility] Unit#:[id number] Loc: [place] [address] Phys: Yeimi Spencer NP Dis Date: PHONE #: [phone] Status: REG ER FAX #: [phone] Exam Date: 12/01/2018 Reason: fell from standing yest R index finger pain EXAMS: CPT CODE: [id number] XR HAND 3 + V RT 27551 HISTORY fall and index finger pain. COMPARISON: X-ray from April 11, 2018. 3 views of the right hand: No acute fracture or dislocation. Joint spaces are preserved. No erosive or destructive changes are noted. IMPRESSION: No acute fracture or dislocation. Joint spaces are preserved. at 1309 Reported and signed by: Sameer Nova M.D. CC: Technologist: Hodan Rosado RT(R)(CT) Trnscrpt Data: 12/01/2018 (6983) t.[email or web address].TH4 Orig Print D/T: S: 12/01/2018 (2316) PAGE 1 Signed Report - CT ABD PELVIS W/CONT 2018-11-17 13:03:00 Name: GRABIEL HWANG [facility] : 1985 Age/S: 33 / M [address] [facility] Unit #: [id number] Loc: [place] [address] Phys: Wally Temple MD Acct: [id number] Dis Date: Status: REG ER PHONE #: [phone] Exam Date: 11/17/2018 1245 FAX #: [phone] Reason: LUQ pain post fall EXAMS: CPT CODE: [id number] CT ABD PELVIS W/CONT 56090 HISTORY: LUQ pain post fall TECHNIQUE: Immediate and delayed [address] images were obtained through the abdomen and pelvis after IV administration of 100 mL of Isovue-370 contrast. Sagittal and coronal reformatted images were generated. Automated exposure control for dose reduction. COMPARISON: 03/12/15 FINDINGS: Mild dependent subsegmental atelectasis. Normal heart size. Liver, gallbladder, pancreas, spleen, adrenal glands, and kidneys are unremarkable. Limited evaluation of the GI tract without oral contrast. Stomach, small bowel, and colon are unremarkable. Appendectomy. No free air or free fluid. No lymphadenopathy. Abdominal aorta is normal in caliber. Urinary bladder is unremarkable. Hysterectomy. No pelvic free fluid. Regional osseous structures are unremarkable. IMPRESSION: No acute intra-abdominal process. at 1303 Reported and signed by: Jie Doyle D.O. CC: Wally Temple MD Technologist:Neo Dacosta RT(R),(MR),(CT); CTDI: DLP: Trnscb Date/Time: 11/17/2018 (8722) [email or web address] Orig Print D/T: S: 11/17/2018 (3451) PAGE 1 Signed Report - CT HEAD/BRAIN W/O CONT 2018-11-17 12:56:00 Name: GRABIEL HWANG [facility] : 1985 Age/S: 33 / M [address] [facility] Unit #: [id number] Loc: [place] [address] Phys: Wally Temple MD Acct: [id number] Dis Date: Status: REG ER PHONE #: [phone] Exam Date: 11/17/2018 1245 FAX #: [phone] Reason: Seizure EXAMS: CPT CODE: [id number] CT HEAD/BRAIN W/O CONT 37956 HISTORY: Seizure TECHNIQUE: Noncontrast 2.[address] of the head. Examination acquired within 24 hours of arrival. Automated exposure control for dose reduction; DLP: 708 mGy-cm. COMPARISON: 03/17/18 FINDINGS: No acute hemorrhage. No CT evidence of acute infarct. No intracranial mass or mass effect. No hydrocephalus. No extra-axial fluid collection. Mild bilateral frontal sinus mucosal thickening. Mastoid air cells and middle ear cavities are clear. Orbital contents are unremarkable. Calvarium and skull base are intact. IMPRESSION: No acute intracranial process. No mass or mass effect. at 1256 Reported and signed by: Jie Doyle D.O. CC: Ra patricio Temple MD Technologist:Neo Dacosta RT(R),(MR),(CT); CTDI: DLP: Trnscb Date/Time: 11/17/2018 (1256) [email or web address] Orig Print D/T: S: 11/17/2018 (1300) PAGE 1 Signed Report BASIC METABOLIC PANEL 2018-11-17 12:29:00 SODIUM (test code=NA) 139 mmol/L 136-145 POTASSIUM (test code=K) 4.3 mmol/L 3.5-5.1 CHLORIDE (test code=CL) 109.0 mmol/L 98-107 CARBON DIOXIDE (test code=CO2) 25.0 mmol/L 21-32 ANION GAP (test code=GAP) 9.3 10-20 GLUCOSE (test code=GLU) 101 mg/dL 74-106 BLOOD UREA NITROGEN (test code=BUN) 14 mg/dL 7-18 GLOMERULAR FILTRATION RATE (test code=GFR) > 60 mL/min >=60 Estimated GFR by using Modified MDRD formula.Chronic kidney disease is defined as either kidney damageor GFR <60 mL/min/1.73 m2 for >3 months. CREATININE (test code=CREAT) 0.80 mg/dL 0.7-1.3 BUN/CREATININE RATIO (test code=BUN/CREA) 17.5 10-20 CALCIUM (test code=CA) 9.2 mg/dL 8.5-10.1 VALPROIC ACID (DEPAKENE)2018-11-17 12:29:00* Test Item Value Reference Range Comments VALPROIC ACID (DEPAKENE) (test code=VALP) 19.0 mcg/mL 50.0-100.0 BASIC METABOLIC [id number] 12:03:00* Test Item Value Reference Range Comments SODIUM (test code=NA) 139 mmol/L 136-145 POTASSIUM (test code=K) 4.3 mmol/L 3.5-5.1 CHLORIDE (test code=CL) 109.0 mmol/L 98-107 CARBON DIOXIDE (test code=CO2) mmol/L 21-32 ANION GAP (test code=GAP) 10-20 GLUCOSE (test code=GLU) mg/dL 74-106 BLOOD UREA NITROGEN (test code=BUN) mg/dL 7-18 GLOMERULAR FILTRATION RATE (test code=GFR) mL/min >=60 CREATININE (test code=CREAT) mg/dL 0.7-1.3 BUN/CREATININE RATIO (test code=BUN/CREA) 10-20 CALCIUM (test code=CA) mg/dL 8.5-10.1 VALPROIC ACID (DEPAKENE)2018-11-17 12:03:00* Test Item Value Reference Range Comments VALPROIC ACID (DEPAKENE) (test code=VALP) mcg/mL 50.0-100.0 CBC W/O [id number] 11:46:00* Test Item Value Reference Range Comments WHITE BLOOD CELL (test code=WBC) 9.6 K/mm3 4.5-12.5 RED BLOOD CELL (test code=RBC) 5.49 mill/mm3 4.0-5.8 HEMOGLOBIN (test code=HGB) 16.0 gram/dL 13.0-17.5 HEMATOCRIT (test code=HCT) 48.6 % 42.0-52.0 MEAN CELL VOLUME (test code=MCV) 88.5 fL 80-98 MEAN CELL HGB (test code=MCH) 29.1 picogram 27.0-33.0 MEAN CELL HGB CONCETRATION (test code=MCHC) 32.9 gram/dL 33.0-36.0 RED CELL DISTRIBUTION WIDTH (test code=RDW) 13.7 % 11.6-16.2 PLATELET COUNT (test code=PLT) 266 K/mm3 150-450 MEAN PLATELET VOLUME (test code=MPV) 9.2 fL 6.7-11.0 - XR CHEST 1 [id number] 11:37:00 FAX: Wally Temple MD [phone] [place]: B St: PRE Name: GRABIEL KOEHLER [facility] : [birth year] Age/S: 33/M [address] Unit #: [id number] Loc: [place] [address] Phys: Wally Temple MD Acct: [id number] Dis Date: Status: PRE ER PHONE #: [phone] Exam Date: 11/17/2018 1118 FAX #: [phone] Reason: Seizure EXAMS: CPT CODE: [id number] XR CHEST 1 V 12389 HISTORY: Seizure TOMI HNIQUE: AP chest x-ray COMPARISON: 10/22/18 FINDINGS: No airspace consolidation or pleural effusion. Normal heart size. Mediastinal silhouette is unremarkable. Visualized osseous structures are grossly intact. IMPRESSION: No radiograp hic evidence of acute cardiopulmonary process. at 1137 Reported and si gned by: Jie Doyle D.O. CC: Wally Temple MD Technologist: Yoon Dennis RT(R) Trnscrd Date/Time/By: 11/17/2018 (1786) : By: [email or web address] Orig Print D/T: S: 11/17/2018 (8087) PAGE 1 Signed Report URINALYSIS COMPLETE 2018-10-22 17:27:00* Test Item Value Reference Range Comments UA COLOR (test code=COLU) YELLOW YELLOW UA APPEARANCE (test code=APPU) CLEAR CLEAR UA GLUCOSE DIPSTICK (test code=DGLUU) norm mg/dL NEGATIVE UA BILIRUBIN DIPSTICK (test code=BILU) NEGATIVE mg/dL NEGATIVE UA KETONE DIPSTICK (test code=KETU) 5 (Trace) mg/dL NEGATIVE UA SPECIFIC GRAVITY (test code=SGU) 1.020 1.001-1.035 UA BLOOD DIPSTICK (test code=RACHEAL) neg Yariel/uL NEGATIVE UA PH DIPSTICK (test code=ADRIA) 6.0 5.0-8.0 UA PROTEIN DIPSTICK (test code=PROU) 15 (TRACE) mg/dL Neg-15 UA UROBILINIOGEN DIPSTICK (test code=URO) 1 mg/dL 0.0-0.2 UA NITRITE DIPSTICK (test code=RADHA) NEGATIVE NEGATIVE UA LEUKOCYTE ESTERASE DIPSTICK (test code=LEUU) 25 Margarita/uL (Trace) uL NEGATIVE UA WBC (test code=WBCU) 0-5 per HPF 0-5 UA RBC (test code=RBCU) NONE SEEN per HPF 0-5 UA EPITHELIAL CELLS (test code=EPIU) Rare (0-1/hpf) per HPF Few UA BACTERIA (test code=BACU) FEW per HPF NONE UA MUCUS (test code=MUCU) FEW per LPF NONE-FEW Urine Source? Clean CatchDRUGS OF ABUSE SCREEN [id number] 17:27:00* Test Item Value Reference Range Comments URN COCAINE (test code=COCAURN) NEGATIVE NEGATIVE URN CANNABINOIDS (test code=CANNABURN) NEGATIVE NEGATIVE URN AMPHETAMINE (test code=AMPHETURN) NEGATIVE NEGATIVE URN BARBITURATE (test code=BARBITURN) NEGATIVE NEGATIVE URN BENZODIAZEPINE (test code=BENZOURN) NEGATIVE NEGATIVE URN OPIATES (test code=OPIATURN) POSITIVE NEGATIVE URN PHENCYCLIDINE (PCP) (test code=PHENCURN) NEGATIVE NEGATIVE Urine Source? Clean CatchURINALYSIS [id number] 17:24:00* Test Item Value Reference Range Comments UA COLOR (test code=COLU) YELLOW YELLOW UA APPEARANCE (test code=APPU) CLEAR CLEAR UA GLUCOSE DIPSTICK (test code=DGLUU) norm mg/dL NEGATIVE UA BILIRUBIN DIPSTICK (test code=BILU) NEGATIVE mg/dL NEGATIVE UA KETONE DIPSTICK (test code=KETU) 5 (Trace) mg/dL NEGATIVE UA SPECIFIC GRAVITY (test code=SGU) 1.020 1.001-1.035 UA BLOOD DIPSTICK (test code=RACHEAL) neg Yariel/uL NEGATIVE UA PH DIPSTICK (test code=ADRIA) 6.0 5.0-8.0 UA PROTEIN DIPSTICK (test code=PROU) 15 (TRACE) mg/dL Neg-15 UA UROBILINIOGEN DIPSTICK (test code=URO) 1 mg/dL 0.0-0.2 UA NITRITE DIPSTICK (test code=RADHA) NEGATIVE NEGATIVE UA LEUKOCYTE ESTERASE DIPSTICK (test code=LEUU) 25 Margarita/uL (Trace) uL NEGATIVE UA WBC (test code=WBCU) per HPF 0-5 UA RBC (test code=RBCU) per HPF 0-5 UA EPITHELIAL CELLS (test code=EPIU) per HPF Few UA BACTERIA (test code=BACU) per HPF NONE Urine Source? Clean CatchDRUGS OF ABUSE SCREEN [id number] 17:24:00* Test Item Value Reference Range Comments URN COCAINE (test code=COCAURN) NEGATIVE URN CANNABINOIDS (test code=CANNABURN) NEGATIVE URN AMPHETAMINE (test code=AMPHETURN) NEGATIVE URN BARBITURATE (test code=BARBITURN) NEGATIVE URN BENZODIAZEPINE (test code=BENZOURN) NEGATIVE URN OPIATES (test code=OPIATURN) NEGATIVE URN PHENCYCLIDINE (PCP) (test code=PHENCURN) NEGATIVE Urine Source? Clean CatchBASIC METABOLIC [id number] 17:15:00* Test Item Value Reference Range Comments SODIUM (test code=NA) 138 mmol/L 135-148 POTASSIUM (test code=K) 3.7 mmol/L 3.5-5.1 CHLORIDE (test code=CL) 103 mmol/L 101-109 CARBON DIOXIDE (test code=CO2) 24.7 mmol/L 21-32 ANION GAP (test code=GAP) 14 mmol/L 10-20 GLUCOSE (test code=GLU) 89 mg/dL 74-106 BLOOD UREA NITROGEN (test code=BUN) 12 mg/dL 3-21 GLOMERULAR FILTRATION RATE (test code=GFR) > 60 mL/min >=60 Estimated GFR by using Modified MDRD formula.Chronic kidney disease is defined as either kidney damageor GFR <60 mL/min/1.73 m2 for >3 months. CREATININE (test code=CREAT) 0.96 mg/dL 0.55-1.3 BUN/CREATININE RATIO (test code=BUN/CREA) 12.5 10-20 CALCIUM (test code=CA) 9.5 mg/dL 8.4-10.2 HEPATIC FUNCTION [id number] 17:15:00* Test Item Value Reference Range Comments TOTAL PROTEIN (test code=PROT) 7.6 g/dL 6.5-8.4 ALBUMIN (test code=ALB) 4.1 g/dL 3.4-4.8 GLOBULIN (test code=GLOB) 3.5 G/DL 1-10 ALBUMIN/GLOBULIN RATIO (test code=A/G) 1.2 RATIO 0.75-1.50 BILIRUBIN TOTAL (test code=BILT) 0.30 mg/dL 0.0-1.0 BILIRUBIN DIRECT (test code=BILD) 0.10 mg/dL 0.0-0.30 SGOT/AST (test code=AST) 17 U/L 6-32 SGPT/ALT (test code=ALT) 37 U/L 12-78 Note: Change in REFERENCE RANGE due to new reagent method. ALKALINE PHOSPHATASE TOTAL (test code=ALKP) 74 U/L 38-126 [id number] 17:15:00* Test Item Value Reference Range Comments LIPASE (test code=LIP) 127 U/L 128-270 [id number] 17:15:00* Test Item Value Reference Range Comments MAGNESIUM (test code=MAG) 2.2 mg/dL 1.6-2.3 CPK-MB [id number] 17:15:00* Test Item Value Reference Range Comments CREATINE KINASE (CK) (test code=CK) 96 U/L 39-308 CKMB (test code=CKMBT) 0.5 ng/mL 0.0-5.0 RELATIVE % INDEX (test code=REL%) 0.5 % [id number] 17:15:00* Test Item Value Reference Range Comments TROPONIN-I (test code=TROPI) <0.015 ng/mL 0.00-0.056 - XR CHEST 1 [id number] 17:11:00 Name: GRABIEL HWANG [facility] : 1985 Age/S:33 /M [address] [facility] Unit#:[id number] Loc: [place] [address] Phys: Renita Beltre MD Dis Date: PHONE #: [phone] Status: REG FAX #: [phone] Exam Date: 10/22/2018 Reason: CHEST PAIN EXAMS: CPT CODE: [id number] XR CHEST 1 V 41630 REASON FOR EXAM: CHEST PAIN EXAM ORDER DATE: 10/22/2018 4:35 PM Ordering M.D.: Renita Beltre MD PROCEDURE: - XR CHEST 1 V COMPARISON: FINDINGS: Portable AP frontal view of the chest obtained at 5:06 PM shows clear lungs without evidence of consolidation. There is no evidence of effusion. The heart size is within normal limits. Pulmonary vasculatures are unremarkable. IMPRESSION: No active disease. at 1711 Reported and signed by: Sergey Perkins M.D. CC: Renita Beltre MD Technologist: CAT MACIAS, RT(R),CT Trnscrpt Data: 10/22/2018 (171 1) t.SDR.VTL Orig Print D/T: S: 10/22/2018 (0950) PAGE 1 Signed Report [id number] 17:04:00* Test Item Value Reference Range Comments D-DIMER (test code=DDIMER) < 100 ng/ml < 600 BASIC METABOLIC [id number] 17:00:00* Test Item Value Reference Range Comments SODIUM (test code=NA) 138 mmol/L 135-148 POTASSIUM (test code=K) 3.7 mmol/L 3.5-5.1 CHLORIDE (test code=CL) 103 mmol/L 101-109 CARBON DIOXIDE (test code=CO2) 24.7 mmol/L 21-32 ANION GAP (test code=GAP) 14 mmol/L 10-20 GLUCOSE (test code=GLU) 89 mg/dL 74-106 BLOOD UREA NITROGEN (test code=BUN) 12 mg/dL 3-21 GLOMERULAR FILTRATION RATE (test code=GFR) > 60 mL/min >=60 Estimated GFR by using Modified MDRD formula.Chronic kidney disease is defined as either kidney damageor GFR <60 mL/min/1.73 m2 for >3 months. CREATININE (test code=CREAT) 0.96 mg/dL 0.55-1.3 BUN/CREATININE RATIO (test code=BUN/CREA) 12.5 10-20 CALCIUM (test code=CA) 9.5 mg/dL 8.4-10.2 HEPATIC FUNCTION [id number] 17:00:00* Test Item Value Reference Range Comments TOTAL PROTEIN (test code=PROT) gram/dL 6.4-8.2 ALBUMIN (test code=ALB) g/dL 3.4-5.0 GLOBULIN (test code=GLOB) g/dL 2.7-4.2 ALBUMIN/GLOBULIN RATIO (test code=A/G) 0.75-1.50 BILIRUBIN TOTAL (test code=BILT) mg/dL 0.2-1.2 BILIRUBIN DIRECT (test code=BILD) mg/dL 0.0-0.20 SGOT/AST (test code=AST) IUnit/L 15-37 SGPT/ALT (test code=ALT) U/L 10-69 ALKALINE PHOSPHATASE TOTAL (test code=ALKP) IUnit/L 45-117 [id number] 17:00:00* Test Item Value Reference Range Comments LIPASE (test code=LIP) Unit/L 144-286 [id number] 17:00:00* Test Item Value Reference Range Comments MAGNESIUM (test code=MAG) mg/dL 1.8-2.4 CPK-MB [id number] 17:00:00* Test Item Value Reference Range Comments CREATINE KINASE (CK) (test code=CK) IUnit/L 26-208 CKMB (test code=CKMBT) ng/mL 0-6.0 RELATIVE % INDEX (test code=REL%) % [id number] 17:00:00* Test Item Value Reference Range Comments TROPONIN-I (test code=TROPI) ng/mL 0-0.045 CBC W/O [id number] 16:49:00* Test Item Value Reference Range Comments WHITE BLOOD CELL (test code=WBC) 10.3 K/mm3 4.5-12.5 RED BLOOD CELL (test code=RBC) 5.66 mill/mm3 4.0-5.8 HEMOGLOBIN (test code=HGB) 16.7 gram/dL 13.0-17.5 HEMATOCRIT (test code=HCT) 48.7 % 42.0-52.0 MEAN CELL VOLUME (test code=MCV) 86.0 fL 80-98 MEAN CELL HGB (test code=MCH) 29.5 picogram 27.0-33.0 MEAN CELL HGB CONCETRATION (test code=MCHC) 34.3 gram/dL 33.0-36.0 RED CELL DISTRIBUTION WIDTH (test code=RDW) 14.3 % 11.6-16.2 RED CELL DISTRIBUTION WIDTH SD (test code=RDW-SD) 44.9 fL 39.2-49.5 PLATELET COUNT (test code=PLT) 319 K/mm3 150-450 MEAN PLATELET VOLUME (test code=MPV) 9.4 fL 6.7-11.0 - XR RIBS BI 3 [id number] 23:52:00 Name: GRABIEL HWANG [facility] : 1985 Age/S:33 /M [address] [facility] Unit#:[id number] Loc: [place] [address] Phys: Malvin Shaw MD Dis Date: PHONE #: [phone] Status: REG ER FAX #: [phone] Exam Date: 10/13/2018 Reason: FAll rib pain EXAMS: CPT CODE: [id number] XR RIBS BI 3 V 96889 R16 EXAM: - XR RIBS BI 3 V HISTORY: FAll rib pain COMPARISON: None FINDINGS: No displaced rib fracture. No aggressive osseous lesion. The lungs are clear. No pleural effusion or pneumothorax. The cardiac silhouette is within normal limits. IMPRESSION: No rib abnormalities. No acute cardiopulmonary disease. at 7687 Reported and signed by: Torsten Jean MD CC: Malvin Shaw MD Technologist: IGNACIO JJ RT(R),CT Trnscrpt Data: 10/13/2018 (4968) [email or web address] Orig Print D/T: S: 10/13/2018 (5742) PAGE [address] BRAIN WO [facility] [address] [place] [address] Patient Name: GRABIEL HWANG MR #: [id number] : 1985 Age/Sex: 32/M Req #: [id number] Adm Physician: Ordered by: CLAUDIA MAHMOOD DELIVERY CONSULTANT Report #: [id number] Location: ER Room/Bed: Procedure: [id number] CT/CT BRAIN WO Exam Date: 06/13/17 Exam Time: 1730 REPORT STATUS: Signed History: Fall Comparison studies: CT brain from 05/10/2015 and 06/22/2014. Technique: Axial images were obtained from the skull base to the harsh jacinta. Coronal and sagittal reconstructions obtained from the axial data. Findings: Scalp/skull: No abnormalities. No fractures, blastic or lytic lesions. Extra-axial spaces: No masses. No fluid collections. Bra in sulci: Appropriate for age. Ventricles: Normal in size and configuration. N o hydrocephalus. Parenchyma: No abnormal densities. No masses, hemorr lori, acute or chronic cortical vascular insults. Sellar/suprasellar region : No abnormalities Craniocervical junction: Patent foramen magnum. No Chiari one malformation. IMPRESSION: No intracranial abnormalities. A pr eliminary report was given by Neuroradiology fellow Dr. Akins at 6:11 PM on 08/14/2016. I have reviewed the study and agree with the findings in the pre liminary report. Signed by: Dr. Christal Cuevas M.D. on 06/13/2017 7:52 PM Dictated By: CHRISTAL CUEVAS MD 51 Transcribed By: OSWALDO on 06/13/171951 COPY TO : CLAUDIA MAHMOOD NP CT CERVICAL SPINE WO [place] [address] Patient Name: GRABIEL HWANG MR #: [id number] : 1985 Age/Sex: 32/M Req #: [id number] Adm Physician: Ordered by: CLAUDIA MAHMOOD NP Report #: [id number] Location: ER Room/Bed: Procedure: [id number] CT/CT CERVICAL SPINE WO E xam Date: 06/13/17 Exam Time: 1730 REPORT STATU S: Signed History: Fall Comparison studies: None Technique: Axial i mages were obtained through the cervical region.. Coronal and sagittal images reconstructed from the axial data.. Intravenous contrast: None Findings: Airway: Patent. Fractures: None. Soft tissues: No gross abnormalitie s. Atlantoaxial articulation: Intact. Alignment: Normal lordosis. No scol iosis. Cervicomedullary junction: No abnormalities. The foramen magnum is sinha nt. Vertebrae: No infection or neoplasm. Degenerative changes: N one. IMPRESSION: 1. No acute abnormalities. 2. Ligament, spinal c ord and or vascular abnormalities cannot be excluded on the basis of this exam ination. A preliminary report was given by Neuroradiology fellow Dr. Som negro at 6:14 PM on 06/13/2017. I have reviewed the study and agree with maryana johnson findings in the preliminary report. Signed by: Paulino Day on 06/13/2017 7:55 PM Dictated By: CHRISTAL CUEVAS MD Electronically S igned By: CHRISTAL CUEVAS MD on 06/13/171954 Transcribed By: OSWALDO on 1953 COPY TO: CLAUDIA MAHMOOD NP
[2018-12-27] MEDS ORDERED: ONDANSETRON HCL INJ 2MG/ML 2ML 2 MG/ML VIAL IV STA (17:38)
[2018-12-27] MEDS ORDERED: FUROSEMIDE40 MG PO (17:39)
[2018-12-27] MEDS ORDERED: FAMOTIDINE20 MG PO (17:39)
[2018-12-27] MEDS ORDERED: COREG12.5 MG (17:39)
[2018-12-27] MEDS ORDERED: DEPAKOTE500 MG (17:39)
[2018-12-27] MEDS ORDERED: LISINOPRIL10 MG PO (17:39)
[2018-12-27] MEDS ORDERED: GABAPENTIN300 MG PO (17:39)
[2018-12-27] MEDS ORDERED: FENTANYL CITRATE/PF 100MCG/2 ML INJ IV ONE (17:45)
[2018-12-27] MEDS ORDERED: SODIUM CHLORIDE 0.9% 1000ML 1,000 ML IV SCH (17:45)
[2018-12-27] MEDS ORDERED: IOPAMIDOL 370 MG/ML 200 ML INFUS..BTL INJ ONE (17:48)
[2018-12-27] MEDS ORDERED: SODIUM CHLORIDE 0.9% 1000ML 1,000 ML ONE (17:49)
[2018-12-27] MEDS ORDERED: ONDANSETRON HCL INJ 2MG/ML 2ML 2 MG/ML VIAL ONE (17:49)
[2018-12-27] MEDS ORDERED: FENTANYL CITRATE/PF 100MCG/2 ML INJ ONE (17:49)
[2018-12-27] MEDS ORDERED: ZEGERID 40 MG1 EACH PO (18:06)
[2018-12-27] MEDS ORDERED: ONDANSETRON ODT8 MG PO (18:08)
--- NOTE | 2018-12-27 19:00 | NUR ---
Report to [facility]
--- NOTE | 2018-12-27 20:07 | Diagnostic Imaging Report ---
CT Abdomen And Pelvis with Intravenous Contrast INDICATION: Abdominal pain ^[id number] ^[id number] TECHNIQUE: Thin collimation axial images obtained from the diaphragm to the level of the pubic symphysis following the uneventful administration of 100 cc of low osmolar, nonionic intravenous contrast. Dose reduction techniques used: Automated exposure control, adjustment of the mAs and/or kVp according to patient size, standardized low-dose protocol, and/or iterative reconstruction technique. RADIATION DOSE: Total DLP: 688.42 mGy*cm Estimated effective dose: (DLP x 0.015 x size factor) mSv CTDIvol has been reviewed. It is below the limits set by the Radiation Protocol Committee (RPC). COMPARISON: Report of CT of the abdomen/pelvis performed 06/25/2015. ABDOMEN FINDINGS: Lung Bases: Bibasilar microatelectasis. Liver: Normal attenuation. No evidence for mass. Gallbladder: Present and appears normal. No biliary ductal dilatation. Pancreas: Normal attenuation without mass or ductal dilatation. Spleen: Normal in size. No evidence of mass. Adrenal Glands: No evidence for mass. Kidneys: Right: Normal enhancement. No soft tissue mass. No calculus. No hydronephrosis. Left: Normal enhancement. No soft tissue mass. No calculus. No hydronephrosis. Lymph Nodes: No enlarged abdominal or retroperitoneal lymph nodes. Aorta: Normal in diameter PELVIS FINDINGS: Bowel: Stomach: Normal. Small Bowel: Normal in caliber with normal wall thickness. Large Bowel: Normal in caliber with normal wall thickness. There are chain sutures at the base of the cecum Appendix: Not visualized and may be absent. Bladder: Normal. Peritoneum/retroperitoneum: No free fluid or fluid collection. Bones: Unremarkable for age. IMPRESSION: 1. No evidence for bowel obstruction or inflammation. 2. No CT abnormalities to explain pain. Signed by: Dr. De Chavez MD on 12/27/2018 8:03 PM
--- NOTE | 2018-12-27 20:11 | Diagnostic Imaging Report ---
EXAMINATION: CXR 2 VIEW - HOPD INDICATION: Mid abdominal pain, nausea ^[id number] ^[id number] COMPARISON: No relevant priors are available for comparison. FINDINGS: PA and lateral views TUBES and LINES: None. LUNGS: Lungs are well inflated. There is no evidence of pneumonia or pulmonary edema. PLEURA: No pleural effusion or pneumothorax. HEART AND MEDIASTINUM: The cardiomediastinal silhouette is unremarkable.. BONES AND SOFT TISSUES: No focal osseous lesions. Soft tissues are unremarkable. UPPER ABDOMEN: No free air under the diaphragm. IMPRESSION: No acute thoracic abnormality. Signed by: Dr. De Chavez MD on 12/27/2018 8:08 PM
[2018-12-27 20:14] VITALS: BP 138/74
== END 2018-12-27 20:25 | disposition home or self-care (01) ==
LOC: FSED 17:12
DX: R10.13 Epigastric pain (principal); R11.0 Nausea; F17.210 Nicotine dependence, cigarettes, uncomplicated
CPT/HCPCS: 71046; 74177; 80053; 81003; 83880; 84484; 85025; 85379; 93005; 96374; 96375; 99284; J2405; J7030; Q9967; J3010

== ENCOUNTER 2019-01-13 17:25 | Emergency (ER) | payer SELFPAY ==
[~2019-01-13] VITALS: Ht 175.3 cm; Wt 80.7 kg
[~2019-01-13 17:25] MED LIST changes: +COREG12.5 MG; +DEPAKOTE500 MG; +FAMOTIDINE20 MG PO; +FUROSEMIDE40 MG PO; +GABAPENTIN300 MG PO; +LISINOPRIL10 MG PO; +ONDANSETRON ODT8 MG PO; +ZEGERID 40 MG1 EACH PO
--- OUTSIDE RECORDS SUMMARY | 2019-01-13 17:28 | XMS REPORT | Clinical Summary ---
Author Author [facility] Organization [facility] Address Unknown Phone Unavailable Care Team Providers Care Director Of Psychology Name Role Phone Asked, No Pcp PCP [...] INFLUENZA VACCINE 01/22/2019 Results Not on fileafter 01/12/2018 Advance Directives Patient has advance care planning documents on file. For more information, jose johnson contact: Julio Brown [address] [place] [address]
--- OUTSIDE RECORDS SUMMARY | 2019-01-13 17:28 | XMS REPORT | Continuity of Care Document ---
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 Integral 17.8 cm LVOT Peak Kpqkdsmw63 cm/s LVOT Peak Gradient2.8 mmHg LVOT Mean Zlpspkjo35.9 cm/s LVOT Mean Gradient1.6 mmHg LVOT Velocity Time Integral 14.7 cm LVOT Stroke Jnkryg36.5 cm AV Area Cont Eq vti 3 cm AV Area Cont Eq pk2.7 cm Mitral E Point Velocity 62 cm/s Mitral A Point Velocity 54 cm/s Mitral E to A Ratio 1.1 MV Deceleration [place] 285 cm/s MV Deceleration Gcom777 ms PV Peak Rcmbzgdc35.5 cm/s PV Peak Gradient3.5 mmHg RVOT Peak Cveisnis15.4 cm/s RVOT Peak Gradient1.9 mmHg LV E' Lateral Velocity9.2 cm/s Mitral E to LV E' Lateral Ratio 6.8 LV E' Septal Velocity 7 cm/s Mitral E to LV E' Septal Ratio8.8 02/11/2018 [facility] TSH TSH 0.41 0.57 - 3.74 12/31/2017 [facility] TSH Lab Interpretation Abnormal 12/31/2017 [facility] HEMOGLOBIN A1C Hemoglobin A1c 5.5 4.3 - 6.1 12/31/2017 [facility] HEMOGLOBIN A1C Est Average Gluc 111.2 12/31/2017 [facility] BASIC METABOLIC PANEL CO2 26 21 - 31 12/31/2017 [facility] BASIC METABOLIC PANEL Chloride 103 98 - 107 12/31/2017 [facility] BASIC METABOLIC PANEL Potassium 4.8 3.5 - 5.1 12/31/2017 [facility] BASIC METABOLIC PANEL Sodium 137 136 - 145 12/31/2017 [facility] BASIC METABOLIC PANEL Glucose 110 70 - 110 12/31/2017 [facility] BASIC METABOLIC PANEL Urea Nitrogen 11 7 - 25 12/31/2017 [facility] BASIC METABOLIC PANEL Creatinine 0.90 0.7 - 1.3 12/31/2017 [facility] BASIC METABOLIC PANEL Anion Gap 8 12/31/2017 [facility] BASIC METABOLIC PANEL Calcium 10.3 8.6 - 10.3 12/31/2017 [facility] BASIC METABOLIC PANEL GFR, Estimated >60 mL/min/1.73 m2 12/31/2017 [facility] BASIC METABOLIC PANEL GFR, Estim, Afr-Am >60 mL/min/1.73 m2 12/31/2017 [facility] LIPID PROFILE <td ID="[id number]">Cholesterol</td><td><span>184</span>
<span style="allIndent"><span style="cellHeader">Comment: </span>
<span ID="[id number]" style="pre">REFERENCE RANGE:
Desirable: <200 mg/dL
Borderline: 200-240 mg/dL
High Risk: >240 mg/dL

</span></span></td><td>mg/dL</td><td>BT MAIN-STATION 1</td><td ID=&amp ;quot;[id number]"/> 184 12/31/2017 REFERENCE RANGE:
Desirable: <200 mg/dL
Borderline: 200-240 mg/dL
High Risk: >240 mg/dL

[facility] LIPID PROFILE <td ID="[id number]">Triglyceride</td><td><span>70</span>
<span style="allIndent"><span style="cellHeader">Comment: </span>
<span ID="[id number]" style="pre">REFERENCE RANGE:
Normal: <150 mg/dL
Borderline High: 150-199 mg/dL
High: 200-499 mg/dL
Very High: >tu=577 mg/dL

</span></span></td><td><150 mg/dL</td><td>BT MAIN- STATION 1</td><td ID="[id number]"/> 70 <150 12/31/2017 REFERENCE RANGE:
Normal: <150 mg/dL
Borderline High: 150-199 mg/dL
High: 200-499 mg/dL
Very High: >yh=759 mg/dL

[facility] LIPID PROFILE <td ID="[id number]">HDL</td><td><span>51</span>
<span style="allIndent"><span style="cellHeader">Comment: </span>
<span ID="[id number]" style="pre">Increased CHD risk: <40 mg/dL
Decreased CHD risk: >60 mg/dL

</span></span>&am p;lt;/td><td>mg/dL</td><td>BT MAIN-STATION 1</td><td ID="[id number]"/> 51 12/31/2017 Increased CHD risk: <40 mg/dL
Decreased CHD risk: >60 mg/dL

[facility] LIPID PROFILE <td ID="[id number]">LDL</td><td><span>119</span>
<span style="allIndent"><span style="cellHeader">Comment: </span>
<span ID="[id number]" style="pre">REFERENCE RANGE:
Optimal: <100 mg/dL
Near Optimal: 100-129 mg/dL
Borderline High: 130-159 mg/dL
High: 160-189 mg/dL
Very High: >ia=572 mg/dL

</span></span></td><td>mg/dL</td><td>BT MAIN-STATION 1</td><td ID="[id number]"/> 119 12/31/2017 REFERENCE RANGE:
Optimal: <100 mg/dL
Near Optimal: 100-129 mg/dL
Borderline High: 130-159 mg/dL
High: 160-189 mg/dL
Very High: >im=584 mg/dL

[facility] LIVER PROFILE T Protein 7.2 6 - 8.3 12/31/2017 [facility] LIVER PROFILE Albumin 4.4 4.2 - 5.5 12/31/2017 [facility] LIVER PROFILE T Bilirubin 0.4 0.2 - 1.2 12/31/2017 [facility] LIVER PROFILE Alk Phos 69 34 - 104 12/31/2017 [facility] LIVER PROFILE AST 17 13 - 39 12/31/2017 [facility] LIVER PROFILE ALT 22 7 - 52 12/31/2017 [facility] LIVER PROFILE D Bilirubin 0.1 0 - 0.2 12/31/2017 [facility] CBC/DIFF WBC 12.1 4.5 - 12 12/31/2017 [facility] CBC/DIFF RBC 5.85 4.60 - 6.20 12/31/2017 [facility] CBC/DIFF Hemoglobin 17.5 14 - 18 12/31/2017 [facility] CBC/DIFF Hematocrit 52.5 40 - 54 12/31/2017 [facility] CBC/DIFF MCV 90 82 - 92 12/31/2017 [facility] CBC/DIFF MCH 29.9 27 - 31 12/31/2017 [facility] CBC/DIFF MCHC 33.3 32 - 36 12/31/2017 [facility] CBC/DIFF RDW 44.4 35.1 - 43.9 12/31/2017 [facility] CBC/DIFF Platelet 386 150 - 400 12/31/2017 [facility] CBC/DIFF Mean Platelet Volume 10.0 9.4 - 12.4 12/31/2017 [facility] CBC/DIFF Percent NRBC 0.0 12/31/2017 [facility] CBC/DIFF Absolute NRBC 0.00 12/31/2017 [facility] CBC/DIFF Neutrophil 75.5 34 - 67.9 12/31/2017 [facility] CBC/DIFF Lymphocyte 16.1 21.8 - 50 12/31/2017 [facility] CBC/DIFF Monocyte 6.3 5.3 - 12 12/31/2017 [facility] CBC/DIFF Eosinophil 1.2 0.8 - 5 12/31/2017 [facility] CBC/DIFF Basophil 0.5 0.2 - 1.2 12/31/2017 [facility] CBC/DIFF Pct Immat Gran 0.4 0.0 - 0.5 12/31/2017 [facility] CBC/DIFF Neutrophil, Abs 9.14 1.78 - 5.36 12/31/2017 [facility] CBC/DIFF Lymphocyte, Abs 1.95 1.32 - 3.57 12/31/2017 [facility] CBC/DIFF Monocyte, Abs 0.76 0.3 - 0.82 12/31/2017 [facility] CBC/DIFF Eosinophil, Abs 0.15 0.04 - 0.54 12/31/2017 [facility] CBC/DIFF Basophil, Abs 0.06 0.01 - 0.08 12/31/2017 [facility] CBC/DIFF Absol Immat Gran 0.05 0 - 0.03 12/31/2017 [facility] CBC/DIFF Lab Interpretation Abnormal 12/31/2017 [facility] 12 LEAD EKG 12 LEAD EKG FOR [facility] Test Date:2017-12-23 Pat Name: GRABIEL HWANG Department: : Gender: MTechnician: [id number] :1985 Requested By: Order Number:Reading MD: Isabel Altamirano M.D. Measurements IntervalsAxis Rate: 92 P:65 MI: 128QRS:78 QRSD: 74 T:49 QT: 334 QTc:413 Interpretive Statements Normal sinus rhythm Normal ECG Electronically Signed On 12-23-17 17:05:02 CDT by Isabel Altamirano M.D. 12/23/2017 [facility] Pathology Reports No Data Provided for This [...] Yesenia Álvarez MD, 08/11/2018 1:56 PM 08/11/2018 [facility] Consultation Notes No Data Provided for This Section Discharge Summaries No Data Provided for This Section History and Physicals No Data Provided for This Section Vital Signs Vital Sign Value Date Comments Source Systolic (mm Hg) 117 10/16/2018 [facility] Diastolic (mm Hg) 76 10/16/2018 [facility] Heart Rate 109 10/16/2018 [facility] Temperature Oral (F) 36.83 [place] 10/16/2018 [facility] Respitory Rate 18 10/16/2018 [facility] Height 175.3 cm 10/16/2018 [facility] Weight 81.92 10/16/2018 [facility] Systolic (mm Hg) 108 04/01/2018 [facility] Diastolic (mm Hg) 71 04/01/2018 [facility] Heart Rate 85 04/01/2018 [facility] Temperature Oral (F) 36.61 [place] 04/01/2018 [facility] Respitory Rate 18 04/01/2018 [facility] Height 175.3 cm 04/01/2018 [facility] Weight 82.01 04/01/2018 [facility] BMI Calculated 26.70 04/01/2018 [facility] Systolic (mm Hg) 124 12/23/2017 [facility] Diastolic (mm Hg) 81 12/23/2017 [facility] Heart Rate 121 12/23/2017 [facility] Temperature Oral (F) 36.89 [place] 12/23/2017 [facility] Respitory Rate 18 12/23/2017 [facility] Height 175.3 cm 12/23/2017 [facility] Weight 77.928 12/23/2017 [facility] BMI Calculated 25.37 12/23/2017 [facility] Encounters Location Location Details Encounter Type Encounter Number Reason For Visit Attending Provider ADM Date DC Date Status Source [facility] [place] Refill [id number] RLQ abdominal pain Right upper quadrant abdominal pain Ting Rascon MD 09/03/2017 [facility] [place] Refill [id number] Heart palpitations Chronic intractable headache, unspecified headache type Combined systolic and diastolic congestive heart failure, unspecified congestive heart failure chronicity Sinus tachycardia Right upper quadrant abdominal pain RLQ abdominal pain Ting Rascon MD 09/03/2017 [facility] [place] Pharmacy Visit [id number] 09/03/2017 [facility] [place] Pharmacy Visit [id number] 09/04/2017 [facility] [place] Pharmacy Visit [id number] 09/05/2017 [facility] [place] Office Visit [id number] [facility] Acute non-recurrent maxillary sinusitis Cough Combined systolic and diastolic congestive heart failure, unspecified congestive heart failure chronicity Sinus tachycardia Seizures Gastroesophageal reflux disease without esophagitis Pain in thoracic spine at multiple sites Ting Rascon MD 09/05/2017 09/05/2017 [facility] [place] Pharmacy Visit [id number] 09/06/2017 [facility] [place] Orders Only [id number] Seizure Georgina Freed [employer] 09/11/2017 [facility] [place] Pharmacy Visit [id number] 09/12/2017 [facility] Visit [id number] 09/12/2017 [facility] [place] Pharmacy Visit [id number] 09/26/2017 [facility] [place] Refill [id number] Acute non-recurrent maxillary sinusitis Cough Scott Hernadez MD 09/26/2017 [facility] Visit [id number] 09/26/2017 [facility] [place] Pharmacy Visit [id number] 09/27/2017 [facility]acy Visit [id number] 09/27/2017 [facility] [place] Pharmacy Visit [id number] 09/30/2017 [facility]acy Visit [id number] 09/30/2017 [facility] [place] Pharmacy Visit [id number] 10/01/2017 [facility]acy Visit [id number] 10/01/2017 [facility] [place] Pharmacy Visit [id number] 10/02/2017 [facility] [place] Pharmacy Visit [id number] 10/03/2017 [facility] [place] Refill [id number] Pain in thoracic spine at multiple sites Scott Hernadez MD 10/26/2017 [facility]acy Visit [id number] 10/28/2017 [facility] [place] Refill [id number] Pain in thoracic spine at multiple sites Scott Hernadez MD 10/29/2017 [facility] [place] Pharmacy Visit [id number] 11/04/2017 [facility] [place] Pharmacy Visit [id number] 11/07/2017 [facility] [place] Pharmacy Visit [id number] 12/03/2017 [facility] [place] Pharmacy Visit [id number] 12/04/2017 [facility]acy Visit [id number] 12/04/2017 [facility] [place] Pharmacy Visit [id number] 12/05/2017 [facility] [place] Pharmacy Visit [id number] 12/23/2017 [facility] [place] Office Visit [id number] Ting Rascon MD 12/23/2017 12/23/2017 [facility] [place] Lab Appointment [id number] Ting Rascon MD 12/30/2017 12/30/2017 [facility] [place] Pharmacy Visit [id number] 01/02/2018 [facility] [place] Refill [id number] Scott Hernadez MD 02/01/2018 [facility] [place] Pharmacy Visit [id number] 02/03/2018 [facility] Visit [id number] 02/03/2018 [facility] [place] Pharmacy Visit [id number] 02/04/2018 [facility] Encounter [id number] Ting Rascon MD 02/11/2018 02/12/2018 [facility] [place] Refill [id number] Rosa Jha RN 02/12/2018 [facility] [place] Pharmacy Visit [id number] 02/17/2018 [facility] [place] Pharmacy Visit [id number] 02/19/2018 [facility] [place] Pharmacy Visit [id number] 03/04/2018 [facility] Visit [id number] 03/25/2018 [facility] [place] Pharmacy Visit [id number] 03/25/2018 [facility] [place] Pharmacy Visit [id number] 03/27/2018 [facility] [place] Pharmacy Visit [id number] 04/01/2018 [facility] [place] Office Visit [id number] Ting Rascon MD 04/01/2018 04/01/2018 [facility] [place] Pharmacy Visit [id number] 04/02/2018 [facility] [place] Pharmacy Visit [id number] 05/02/2018 [facility] [place] Refill [id number] Rosa Jha RN 05/26/2018 [facility] [place] Refill [id number] Ting Rascon MD 06/21/2018 [facility] Travel [id number] 08/04/2018 [facility] Office Visit [id number] Ting Rascon MD 08/04/2018 08/04/2018 [facility] [place] Orders Only [id number] Ting Rascon MD 08/07/2018 [facility] [place] Office Visit [id number] Ting Rascon MD 08/07/2018 08/07/2018 [facility] [place] Lab Appointment [id number] Ting Rascon MD 08/11/2018 08/11/2018 [facility] [place] Ancillary Procedure [id number] Ting Rascon MD 08/11/2018 08/11/2018 [facility] [place] Refill [id number] Ting Rascon MD 09/14/2018 [facility] [place] Refill [id number] Scott Hernadez MD 09/14/2018 [facility] [place] Refill [id number] Ting Rascon MD 09/30/2018 [facility] [place] Telephone [id number] Bradford Tan 10/02/2018 [facility] Travel [id number] 10/14/2018 [facility] [place] Orders Only [id number] Ting Rascon MD 10/16/2018 [facility] [place] Office Visit [id number] Ting Rascon MD 10/16/2018 10/16/2018 [facility] [place] Refill [id number] Ting Rascon MD 11/12/2018 [facility] EKG (5400) [facility] Encounter [id number] Ting Rascon MD 11/14/2018 [facility] Procedures Procedure Code Date Perfomer Comments Source XRAY CHEST 2 VIEWS 75658 08/11/2018 [facility] VALPROIC ACID 88108 08/11/2018 [facility] LIVER PROFILE 74449 08/11/2018 [facility] BASIC METABOLIC PANEL 16044 08/11/2018 [facility] CBC/DIFF 79949 08/11/2018 [facility] HEMOGLOBIN A1C 24359 08/11/2018 [facility] FREE T4 42983 08/11/2018 [facility] THYROID STIMULATING HORMONE (TSH) 81310 08/11/2018 [facility] PULMONARY FUNCTION TEST 02249 08/08/2018 [facility] TRANSTHORACIC ECHO (TTE) 09290 02/11/2018 [facility] TRANSTHORACIC ECHO (TTE) 23861 02/11/2018 [facility] LIPID PROFILE 81452 12/30/2017 [facility] LIVER PROFILE 04649 12/30/2017 [facility] BASIC METABOLIC PANEL 46565 12/30/2017 [facility] CBC/DIFF 95852 12/30/2017 [facility] HEMOGLOBIN A1C 79443 12/30/2017 [facility] THYROID STIMULATING HORMONE (TSH) 84877 12/30/2017 [facility] LIPID PROFILE 68737 12/30/2017 [facility] LIVER PROFILE 82612 12/30/2017 [facility] BASIC METABOLIC PANEL 53966 12/30/2017 [facility] CBC/DIFF 39889 12/30/2017 [facility] HEMOGLOBIN A1C 72258 12/30/2017 [facility] TSH 10743 12/30/2017 [facility] 12 LEAD EKG 80640 12/23/2017 [facility] 12 LEAD EKG 65366 12/23/2017 [facility] Assessment and Plan No Data Provided for This Section Plan of Care Plan of Care Date Source Not on file 12/02/2018 [facility] Upcoming EncountersDateTypeSpecialtyCare TeamDescription 07/03/2018 Office Visit Neurology ref #: [id number] 05/19/2018 [facility] Upcoming EncountersDateTypeSpecialtyCare TeamDescription 04/01/2018 Office Visit Family Practice Ting Rascon MD[address] [phone] (Fax[facility] Social History Social History Date Source Tobacco [...] End No recent travel history available. 11/26/2018 [facility] Family History Value Date Source Medical HistoryRelationNameComments Hypertension Mother Other Mother migraine, depression RelationNameStatusComments Brother Alive Father Alive Maternal Grandfather Maternal Grandmother Mother Alive Paternal Grandfather Paternal Grandmother Alive Sister Alive Sister Alive Sister Alive Son Alive 12/02/2018 [facility] Medical HistoryRelationNameComments Hypertension Mother Other Mother migraine, depression RelationNameStatusComments Brother Alive Father Alive Maternal Grandfather Maternal Grandmother Mother Alive Paternal Grandfather Paternal Grandmother Alive Sister Alive Sister Alive Sister Alive Son Alive 05/19/2018 [facility] Medical HistoryRelationNameComments Hypertension Mother Other Mother migraine, depression RelationNameStatusComments Brother Alive Father Alive Maternal Grandfather Maternal Grandmother Mother Alive Paternal Grandfather Paternal Grandmother Alive Sister Alive Sister Alive Sister Alive Son Alive 03/27/2018 [facility] Advance Directives No Data Provided for This Section Functional Status No Data Provided for This Section
[2019-01-13] MEDS ORDERED: SODIUM CHLORIDE 0.9% 1000ML 1,000 ML IV STA (17:44)
[2019-01-13] MEDS ORDERED: ACETAMINOPHEN 325 MG TAB PO ONE (17:45)
[2019-01-13] MEDS ORDERED: ONDANSETRON HCL INJ 2MG/ML 2ML 2 MG/ML VIAL IV ONE (17:45)
[2019-01-13] MEDS ORDERED: FAMOTIDINE 20 MG/2 ML VIAL IV ONE ×2 (17:45→18:05)
[2019-01-13] MEDS ORDERED: ONDANSETRON HCL INJ 2MG/ML 2ML 2 MG/ML VIAL ONE (18:04)
[2019-01-13] MEDS ORDERED: ACETAMINOPHEN 325 MG TAB ONE (18:04)
[2019-01-13] MEDS ORDERED: SODIUM CHLORIDE 0.9% 1000ML 1,000 ML ONE (18:05)
--- NOTE | 2019-01-13 18:37 | NUR ---
PT DENIED DRUG USE. WHEN DRUG SCREEN CAME BACK POSITIVE I QUESTIONED PATIENT AND HE STATED HE TOOK SOME PILLS HIS FRIEND GAVE HIM FOR MIGRAINES. PT STATED HE WAS CALLING THE POLICE TO FILE CHARGES ON HIS FRIEND, WHEN I ASKED HIM WHAT HIS CASE NUMBER WAS HE STATED HE DIDNT GET ONE.
--- NOTE | 2019-01-13 19:24 | Diagnostic Imaging Report ---
EXAM: CT Abdomen and Pelvis WITHOUT contrast INDICATION: ^[id number] ^[id number] COMPARISON: CT abdomen and pelvis 12/27/2018 TECHNIQUE: Abdomen and pelvis were scanned utilizing a multidetector helical scanner from the lung base to the pubic symphysis without administration of IV contrast. Absence of intravenous contrast decreases sensitivity for detection of focal lesions and vascular pathology. Coronal and sagittal reformations were obtained. Routine protocol was performed. IV CONTRAST: None. ORAL CONTRAST: None RADIATION DOSE: Total DLP: 685.98 mGy*cm Estimated effective dose: (DLP x 0.015 x size factor) mSv COMPLICATIONS: None FINDINGS: LINES and TUBES: None. LOWER THORAX: Unremarkable HEPATOBILIARY: Mild low diffuse attenuation of the liver parenchyma may reflect early hepatic steatosis. No focal hepatic lesions. No biliary ductal dilation. GALLBLADDER: No radio-opaque stones or sludge. No wall thickening. SPLEEN: No splenomegaly. PANCREAS: No focal masses or ductal dilatation. ADRENALS: No adrenal nodules KIDNEYS/URETERS: No hydronephrosis. No cystic or solid mass lesions. No stones. GI TRACT: No abnormal distention, wall thickening, or evidence of bowel obstruction. Appendix is absent. PELVIC ORGANS/BLADDER: Unremarkable. LYMPH NODES: No lymphadenopathy. VESSELS: Unremarkable. PERITONEUM / RETROPERITONEUM: No free air or fluid. BONES: Bone island in the left iliac bone. No acute bony abnormalities. SOFT TISSUES: Unremarkable. IMPRESSION: No acute abnormality within the abdomen and pelvis. Signed by: Dr. Yesenia Leger M.D. on 01/13/2019 7:21 PM
== END 2019-01-13 20:00 | disposition home or self-care (01) ==
LOC: FSED 17:25
DX: R10.32 Left lower quadrant pain (principal); R11.0 Nausea; F15.10 Other stimulant abuse, uncomplicated; F11.10 Opioid abuse, uncomplicated
CPT/HCPCS: 74176; 80053; 80307; 81003; 85025; 99284; J2405; J7030